=== PATIENT | male | born 1970 | race Caucasian/White ===

== ENCOUNTER 2020-02-06 23:39 | Inpatient (IN) | payer SELFPAY ==
[2020-02-06] MEDS ORDERED: ASPIRIN 81 MG CHEWABLE TABLET ONE ×2 (23:54→23:55)
[2020-02-07 00:04] LABS: Protime INR 1.03
[2020-02-07 00:06] LABS: Basophils % 1.1 % (0-1.3); Hematocrit 40.1 % (39.6-49.0); Lymphocytes % 24.6 % (15.3-44.8); RBC Red Blood Cell Count 4.25 M/uL (4.33-5.43)
[2020-02-07 00:21] LABS: ALT/SGPT 26 U/L (12-78); AST/SGOT 54 U/L (15-37); Albumin 2.1 g/dL (3.4-5.0); Alkaline Phosphatase 75 U/L (45-117); BUN Blood Urea Nitrogen 20 mg/dL (7-18); Bicarbonate 28 mmol/L (21-32); Bilirubin Direct 0.1 mg/dL (0-0.2); Bilirubin Total 0.2 mg/dL (0.2-1.0); Glucose Level 92 mg/dL (74-106); Magnesium 1.9 mg/dL (1.8-2.4); NT PRO-BNP 1516 pg/mL (<125); Potassium 4.3 mmol/L (3.5-5.1); Protein, Total 7.3 g/dL (6.4-8.2); Sodium Level 142 mmol/L (136-145); Troponin (Emerg Dept Use Only) < 0.02 ng/mL (0.0-0.045)
--- NOTE | 2020-02-07 00:37 | EDPHYS ---
Physician Documentation [facility] Name: Jamar Ford Age: 49 yrs Sex: Male : 1970 Arrival Date: 02/06/2020 Time: 23:39 Bed 6 Private MD: ED Physician Brigette Huston HPI: 02/05 23:42 This 49 yrs old Male presents to ER via EMS with complaints of chest pain. ma2 23:42 The patient or guardian reports chest pain that is located primarily in the substernal ma2 area. Onset: gradually, 3 day(s) ago. Associated signs and symptoms: Pertinent negatives: cough, headache, lightheadedness, nausea. Duration: The patient or guardian reports multiple episodes. Severity of pain: At its worst the pain was mild in the emergency department the pain is unchanged. The patient has experienced similar episodes in the past. Historical: - Allergies: 23:44 Ibuprofen; jd3 23:44 Naproxen; jd3 - Home Meds: 23:44 Metoprolol Tartrate Oral [Active]; Klonopin Oral [Active]; jd3 - PMHx: 23:44 heart valve problem; jd3 - PSHx: 23:44 Hernia repair; jd3 - Immunization history:: Adult Immunizations up to date. - Social history:: Patient/guardian denies using alcohol, street drugs, The patient lives with family, Smoking status: Patient reports the use of cigarette tobacco products, denies chronic smoking, but will smoke occasionally. - Family history:: not pertinent. ROS: 23:42 Constitutional: Negative for fever, chills, and weight loss. ma2 23:42 All other systems are negative. Exam: 23:42 Constitutional: This is a well developed, well nourished patient who is awake, alert, ma2 and in no acute distress. Eyes: Pupils equal round and reactive to light, extra-ocular motions intact. Lids and lashes normal. Conjunctiva and sclera are non-icteric and not injected. Cornea within normal limits. Periorbital areas with no swelling, redness, or edema. ENT: Nares patent. No nasal discharge, no septal abnormalities noted. Tympanic membranes are normal and external auditory canals are clear. Oropharynx with no redness, swelling, or masses, exudates, or evidence of obstruction, uvula midline. Mucous membranes moist. Neck: Trachea midline, no thyromegaly or masses palpated, and no cervical lymphadenopathy. Supple, full range of motion without nuchal rigidity, or vertebral point tenderness. No Meningismus. Chest/axilla: Normal chest wall appearance and motion. Nontender with no deformity. No lesions are appreciated. Cardiovascular: Regular rate and rhythm with a normal S1 and S2. No gallops, murmurs, or rubs. Normal PMI, no JVD. No pulse deficits. Respiratory: Lungs have equal breath sounds bilaterally, clear to auscultation and percussion. No rales, rhonchi or wheezes noted. No increased work of breathing, no retractions or nasal flaring. Abdomen/GI: Soft, non-tender, with normal bowel sounds. No distension or tympany. No guarding or rebound. No evidence of tenderness throughout. Skin: Warm, dry with normal turgor. Normal color with no rashes, no lesions, and no evidence of cellulitis. MS/ Extremity: LE edema 2+ pitting, equal bilat. Pulses equal, no cyanosis. Neurovascular intact. Full, normal range of motion. Neuro: Awake and alert, GCS 15, oriented to person, place, time, and situation. Cranial nerves II-XII grossly intact. Motor strength 5/5 in all extremities. Sensory grossly intact. Cerebellar exam normal. Normal gait. Vital Signs: 23:44 BP 156 / 93; Pulse 67; Resp 14 S; Temp 97.9(TE); Pulse Ox 95% on R/A; Weight 97.52 kg jd3 (R); Height 6 ft. 2 in. (187.96 cm) (R); Pain 6/10; 02/06 01:00 BP 138 / 89; Pulse 66; Resp 16; Pulse Ox 96% on R/A; sg 02:07 BP 145 / 95; Pulse 70; Resp 16; Pulse Ox 95% on R/A; sg 02/05 23:44 Body Mass Index 27.60 (97.52 kg, 187.96 cm) jd3 MDM: 02/05 23:40 Patient medically screened. ma2 23:42 Differential diagnosis: abnormal EKG, acute pericarditis, anxiety, coronary artery ma2 disease gastritis, gastroesophageal reflux disease (GERD), pericarditis, pleurisy, pneumonia, stable angina, unstable angina. The patient was given aspirin in the Emergency Department. BECKI Risk Score: TOTAL SCORE = 3. Data reviewed: vital signs, nurses notes. 02/06 00:35 Counseling: I had a detailed discussion with the patient and/or guardian regarding: the [facility] historical points, exam findings, and any diagnostic results supporting the discharge/admit diagnosis, the presence of at least one elevated blood pressure reading (>120/80) during this emergency department visit, the need for further work-up and treatment in the hospital. 02/05 23:41 Order name: Basic Metabolic Panel; Complete Time: 00:32 ma2 02/05 23:41 Order name: CBC with Diff; Complete Time: 00:17 ma2 02/05 23:41 Order name: LFT's; Complete Time: 00:32 ma2 02/05 23:41 Order name: Magnesium; Complete Time: 00:32 ma2 02/05 23:41 Order name: NT PRO-BNP; Complete Time: 00:32 ma2 02/05 23:41 Order name: PT-INR; Complete Time: 00:17 ma2 02/05 23:41 Order name: Troponin (emerg Dept Use Only); Complete Time: 00:32 ma2 02/05 23:41 Order name: XRAY Chest (1 view) [facility] 02/06 01:38 Order name: Echo with Doppler [facility] 02/06 01:38 Order name: Lipid Profile [facility] 02/06 01:38 Order name: Lipid Profile [facility] 02/06 01:38 Order name: Troponin I [facility] 02/06 01:38 Order name: Troponin I [facility] 02/06 01:38 Order name: Troponin I [facility] 02/05 23:41 Order name: EKG; Complete Time: 23:42 ma2 02/05 23:41 Order name: Cardiac monitoring; Complete Time: 23:46 ma2 02/05 23:41 Order name: EKG - Nurse/Tech; Complete Time: 23:45 ma2 02/05 23:41 Order name: IV Saline Lock; Complete Time: 23:54 ma2 02/05 23:41 Order name: Labs collected and sent; Complete Time: 23:54 ma2 02/05 23:41 Order name: O2 Per Protocol; Complete Time: 23:46 ma2 02/05 23:41 Order name: O2 Sat Monitoring; Complete Time: 23:46 ma2 02/06 01:38 Order name: Heart Healthy EDMS 02/06 01:38 Order name: EKG Electrocardiogram EDMS 02/06 01:38 Order name: EKG Electrocardiogram EDNY Administered Medications: 02/05 23:49 Drug: Aspirin Chewable Tablet 324 mg Route: PO; sg 02/06 01:10 Drug: Lasix 20 mg Route: IVP; Site: right antecubital; ea Disposition: 02/07/20 00:35 Hospitalization ordered by Brigette Art for Observation. Preliminary diagnosis is Chest pain, unspecified. - Bed requested for Telemetry/MedSurg (observation). - Status is Observation. sg - Condition is Stable. - Problem is new. - Symptoms are unchanged. Signatures: Dispatcher [employer] EDNY Josh Steele, RN RN sg Layla Noe RN RN tl1 Shayy Moody RN Evangelist Sanchez ea, RN RN jd3 Alzahri, Mohammad, MD MD ma2 Corrections: (The following items were deleted from the chart) 02:07 00:35 Hospitalization Ordered by Brigette Art MD for Observation. Preliminary tl1 diagnosis is Chest pain, unspecified. Bed requested for Telemetry/MedSurg (observation). Status is Observation. Condition is Stable. Problem is new. Symptoms are unchanged. ma2 02:56 02:07 02/07/2020 00:35 Hospitalization Ordered by Brigette Art MD for Observation. sg Preliminary diagnosis is Chest pain, unspecified. Bed requested for Telemetry/MedSurg (observation). Status is Observation. Condition is Stable. Problem is new. Symptoms are unchanged. tl1
--- NOTE | 2020-02-07 00:37 | ER ---
Nurse's Notes [facility] Name: Jamar Ford Age: 49 yrs Sex: Male : 1970 Arrival Date: 02/06/2020 Time: 23:39 Bed 6 Private MD: Diagnosis: Chest pain, unspecified Presentation: 02/05 23:39 Chief complaint: EMS states: "pt called us out for chest pain. he reports that he has a jd3 history of a heart valve problem. he is also reporting swelling in his legs.". Coronavirus screen: Proceed with normal triage. Ebola Screen: Patient negative for fever greater than or equal to 101.5 degrees Fahrenheit, and additional compatible Ebola Virus Disease symptoms. Initial Sepsis Screen: Does the patient meet any 2 criteria? No. Patient's initial sepsis screen is negative. Does the patient have a suspected source of infection? No. Patient's initial sepsis screen is negative. Risk Assessment: Do you want to hurt yourself or someone else? Patient reports no desire to harm self or others. Onset of symptoms was February 06, 2020. 23:39 Method Of Arrival: EMS: [facility] jd3 23:39 Acuity: FERNANDO 3 jd3 Historical: - Allergies: 23:44 Ibuprofen; jd3 23:44 Naproxen; jd3 - Home Meds: 23:44 Metoprolol Tartrate Oral [Active]; Klonopin Oral [Active]; jd3 - PMHx: 23:44 heart valve problem; jd3 - PSHx: 23:44 Hernia repair; jd3 - Immunization history:: Adult Immunizations up to date. - Social history:: Patient/guardian denies using alcohol, street drugs, The patient lives with family, Smoking status: Patient reports the use of cigarette tobacco products, denies chronic smoking, but will smoke occasionally. - Family history:: not pertinent. Screenin:40 Abuse screen: Denies threats or abuse. Denies injuries from another. Nutritional sg screening: No deficits noted. Tuberculosis screening: No symptoms or risk factors identified. Never had TB. Fall Risk None identified. Assessment: 23:40 General: Appears in no apparent distress. well groomed, well developed, well nourished, sg Behavior is calm, cooperative, appropriate for age. Pain: Complains of pain in chest Quality of pain is described as aching, sharp. Neuro: Level of Consciousness is awake, alert, obeys commands, Oriented to person, place, time, situation, Air Crew Supervisor are equal bilaterally Moves all extremities. Gait is steady, Speech is normal, Facial symmetry appears normal. Cardiovascular: Capillary refill is brisk in bilateral fingers Patient's skin is warm and dry. Edema is 2+ to left midcalf, left ankle, right midcalf and right ankle Chest pain is described as mild, quality is pressure, sharp, is located in anterior chest wall. Respiratory: Airway is patent Respiratory effort is even, unlabored, Respiratory pattern is regular, symmetrical, Denies cough, shortness of breath labored breathing. GI: Abdomen is non-distended, Reports tolerance of fluids, tolerance of food. : No signs and/or symptoms were reported regarding the genitourinary system. EENT: No signs and/or symptoms were reported regarding the EENT system. Derm: Skin is pink, warm \\T\\ dry. Musculoskeletal: Circulation, motion, and sensation intact. Range of motion: intact in all extremities. 02/06 02:29 Reassessment: Report called to Sri KUNZ ea Vital Signs: 02/05 23:44 BP 156 / 93; Pulse 67; Resp 14 S; Temp 97.9(TE); Pulse Ox 95% on R/A; Weight 97.52 kg jd3 (R); Height 6 ft. 2 in. (187.96 cm) (R); Pain 6/10; 02/06 01:00 BP 138 / 89; Pulse 66; Resp 16; Pulse Ox 96% on R/A; sg 02:07 BP 145 / 95; Pulse 70; Resp 16; Pulse Ox 95% on R/A; sg 02/05 23:44 Body Mass Index 27.60 (97.52 kg, 187.96 cm) jd3 ED Course: 02/05 11:40 Patient has correct armband on for positive identification. Bed in low position. Call sg light in reach. Side rails up X2. campus monitor on. Pulse ox on. NIBP on. Head of bed elevated. 23:39 Patient arrived in ED. jd3 23:40 Brigette Huston MD is Attending Physician. ma2 23:40 EKG done, by ED staff, reviewed by Brigette Huston MD. sg 23:42 Triage completed. jd3 23:44 Arm band placed on. EKG completed in triage. Results shown to . dario 23:48 Missed attempt(s): 20 gauge in right antecubital area. ea 23:52 Josh Steele, RN is Primary Nurse. sg 23:53 Inserted saline lock: 20 gauge in right antecubital area, using aseptic technique. ea 02/06 00:16 XRAY Chest (1 view) In Process Unspecified. EDMS 00:35 Brigette Art MD is Hospitalizing Provider. ma2 02:29 No provider procedures requiring assistance completed. Patient admitted, IV remains in ea place. Administered Medications: 02/05 23:49 Drug: Aspirin Chewable Tablet 324 mg Route: PO; sg 02/06 01:10 Drug: Lasix 20 mg Route: IVP; Site: right antecubital; ea Outcome: 00:35 Decision to Hospitalize by Provider. ma2 02:29 Admitted to Med/surg accompanied by tech, with chart, Report called to Sri VILLAGOMEZ ea 02:29 Condition: stable 02:29 Instructed on the need for admit. 02:56 Patient left the ED. sg Signatures: Dispatcher [employer] EDMS Josh Steele RN RN sg Antunez, Elena, RN RN ea Davies, Jonathon, RN RN jd3 Alzahri, Mohammad, MD MD ma2 Corrections: (The following items were deleted from the chart) 01:25 02/05 23:40 Cardiovascular: Capillary refill is brisk in bilateral fingers Patient's sg skin is warm and dry. Chest pain is described as mild, quality is pressure, sharp, is located in anterior chest wall sg
[2020-02-07] MEDS ORDERED: FUROSEMIDE 20 MG/ 2ML VIAL ONE (00:52)
[2020-02-07] MEDS ORDERED: ACETAMINOPHEN 500 MG TAB PO PRN (01:33)
[2020-02-07] MEDS ORDERED: ALPRAZOLAM 0.25 MG TABLET PO PRN (01:33)
[2020-02-07] MEDS ORDERED: MORPHINE 4 MG/ML SYR IV PRN (01:33)
[2020-02-07 03:10] VITALS: BMI 26.3
[2020-02-07] MEDS ORDERED: METOPROLOL TAR 50 MG TAB PO SCH (06:00)
[2020-02-07 06:25] LABS: HDL Cholesterol 70 mg/dL (40-60); LDL Cholesterol, Calculated 77 (<130); Troponin I < 0.02 ng/mL (0.0-0.045)
--- NOTE | 2020-02-07 07:24 | P.HP ---
Certification for Inpatient Patient admitted to: Observation With expected LOS: <2 Midnights Patient will require the following post-hospital care: None Practitioner: I am a practitioner with admitting privileges, knowledge of patient current condition, hospital course, and medical plan of care. Services: Services provided to patient in accordance with Admission requirements found in Title 42 Section 412.3 of the Code of Federal Regulations Patient History Date of Service: 02/07/20 Reason for admission: Chest pain rule out acute coronary syndrome History of Present Illness: Patient is a 49-year-old gentleman who came to the hospital with chest discomfort. He started having pain in the sternal region and has also been having some swelling in the lower extremity. He denies any NSAID use. He denies history of heart failure. He has not had any clots in the past. He has an uncle who had blood clots regularly but he states he has never had 1. He does not smoke. He denies any substance abuse. After his chest pain started and would not resolve he called the EMS. Patient was brought into the emergency room for further evaluation. His initial troponins and EKG are unremarkable. Patient does state that he has a valvular disease but he is not really sure exactly what it is. Patient will need to be admitted and further workup for his chest pain. Will get an echocardiogram and will also assess his lower extremity edema with Dopplers. Most likely patient has diastolic heart failure. Patient will be admitted for further evaluation. Allergies ibuprofen Allergy (Verified 02/07/20 03:05) Itching/Hives/Rash naproxen Allergy (Verified 02/07/20 03:05) Itching/Hives/Rash Home Medications: Amlodipine [Norvasc*] 1 tab PO DAILY 02/07/20 Metoprolol Tartrate 1 tab PO BID 02/07/20 Tamsulosin [Flomax*] 1 cap PO DAILY 02/07/20 - Past Medical/Surgical History Has patient received pneumonia vaccine in the past: No Diabetic: No -: heart valve problem -: HTN -: enlarged prostate -: hernia repair - Family History Father Family History: Reviewed- Non-Contributory - Social History Smoking Status: Current every day smoker Alcohol use: Yes CD- Drugs: No Caffeine use: Yes Place of Residence: Home Review of Systems 10-point ROS is otherwise unremarkable Physical Examination - Vital Signs Temperature: 98.5 F Blood Pressure: 124/76 Pulse: 64 Respirations: 18 Pulse Ox (%): 94 - Physical Exam General: Alert, In no apparent distress, Oriented x3 HEENT: Atraumatic, PERRLA, Mucous membr. moist/pink, EOMI, Sclerae nonicteric Neck: Supple, 2+ carotid pulse no bruit, No LAD, Without JVD or thyroid abnormality Respiratory: Clear to auscultation bilaterally, Normal air movement Cardiovascular: Regular rate/rhythm, Normal S1 S2, Systolic murmur Gastrointestinal: Normal bowel sounds, Soft and benign, Non-distended, No tenderness Musculoskeletal: No clubbing, No tenderness, Swelling Integumentary: No rashes Neurological: Normal gait, Normal speech, Normal strength at 5/5 x4 extr, Normal tone, Sensation intact, Cranial nerves 3-12 intact, Normal affect Lymphatics: No axilla or inguinal lymphadenopathy - Studies Laboratory Data (last 24 hrs) 02/06/20 23:46: PT 12.2, INR 1.03 02/06/20 23:46: WBC 8.0, Hgb 13.3 L, Hct 40.1, Plt Count 241 02/06/20 23:46: Sodium 142, Potassium 4.3, BUN 20 H, Creatinine 1.24, Glucose 92, Magnesium 1.9, Total Bilirubin 0.2, AST 54 H, ALT 26, Alkaline Phosphatase 75 Assessment & Plan - Problems (Diagnosis) (1) Chest pain, rule out acute myocardial infarction Current Visit: Yes Status: Acute (2) Swelling of both lower extremities Current Visit: Yes Status: Acute (3) Elevated brain natriuretic peptide (BNP) level Current Visit: Yes Status: Acute (4) Valvular heart disease Current Visit: Yes Status: Acute (5) Hypoalbuminemia Current Visit: Yes Status: Acute (6) Proteinuria Current Visit: Yes Status: Acute - Plan 1. Serial troponins and EKG 2. Cardiology consultation 3. Echocardiogram and stress test if cardiology is agreeable 4. Anti-platelet therapy, anti coagulation, beta-leigh, statin, and O2 as needed 5. IV morphine for pain 6. Nitro p.r.n. 7. Doppler of the lower extremity 8. Monitor labs closely 9. Check urine for proteinuria; patient w/ hypoalbuminemia 10. GI and DVT prophylaxis Discharge Plan: Home Plan to discharge in: 24 Hours - Advance Directives Does patient have a Living Will: No Does patient have a Durable POA for Healthcare: Yes - Code Status/Comfort Care Code Status Assessed: Yes Code Status: Full Code Critical Care: No Time Spent Managing PTS Care (In Minutes): 45
--- NOTE | 2020-02-07 08:24 | RAD REPORT ---
EXAM DESCRIPTION: RAD - Chest Single View - 02/07/2020 12:16 am CLINICAL HISTORY: CHEST PAIN Chest pain. COMPARISON: No comparisons FINDINGS: Portable technique limits examination quality. The lungs are emphysematous but grossly clear. The heart is normal in size. No displaced fractures. IMPRESSION: Mild COPD.
[2020-02-07] MEDS: METOPROLOL TAR 50 MG TAB PO SCH ×2 (08:27→21:32)
[2020-02-07] MEDS: TAMSULOSIN 0.4 MG SR CAP PO SCH (08:27)
[2020-02-07] MEDS: ASPIRIN EC 81 MG TAB PO SCH (08:28)
[2020-02-07] MEDS: AMLODIPINE 10 MG TAB PO SCH (08:28)
[2020-02-07] MEDS: ENOXAPARIN 40 MG/0.4 ML SQ SCH (08:29)
[2020-02-07] MEDS: FUROSEMIDE 20 MG/ 2ML VIAL IV SCH ×2 (08:29→21:32)
[2020-02-07 09:03] LABS: Thyroid Stimulating Hormone 8.9 uIU/mL (0.360-3.740)
--- NOTE | 2020-02-07 10:30 | CON ---
Date of Consultation: 02/07/2020 Reason For Consultation: Shortness of breath and chest pain. History Of Present Illness: Mr. Ford is a 49-year-old white male who has a history of hyperten germán and valvular heart disease of unknown etiology. He just recently moved to this part of the [facility], so we do not really have any medical records, but apparently he was told 1.23 years ago that he ma y need valvular heart surgery. He does not know any details of that. He came in with atypical chest pain, sharp, stabbing, radiating to the left arm and left back without any nausea or vomiting or jessica phoresis, but has been having PND, orthopnea, and pedal edema as well as shortness of breath. He den ied any fevers or chills or cough. Past Medical History: Include hypertension and valvular heart disease. Review of Systems: Negative. Social History: Positive for tobacco. Family History: Unremarkable. Medications: At home include flow mask, Norvasc, and metoprolol tartrate. Allergies: HE IS ALLERGIC TO MOTRIN AND NAPROXEN. Physical Examination: Vital Signs: Blood pressure was 148/91. HEENT: Negative. Neck: Supple with no bruit, lymphadenopathy, JVD, or thyromegaly. Chest: Reveals some rales at both bases. Cardiac: Revealed a regular rhythm and rate with a 3/6 holosystolic murmur at the third right interc ostal space that did not radiate. No gallops or rubs. Abdomen: Benign. Extremities: Revealed 2+ edema to the knees. Impression And Plan: 1.Acute congestive heart failure, most likely secondary to valvular heart disease. 2.Chronic obstructive pulmonary disease on x-ray. 3.Hypertension. 4.Benign prostatic hypertrophy. I think patient needs to continue the metoprolol and the Norvasc. We need to diurese him with IV Las ix, preferably 40 mg twice a day. I think we need to get a 2D echocardiogram today to see what his v alvular status is. Patient's blood pressure is borderline controlled. He is in sinus rhythm, howeve r, we will see how he progresses with diuresis and what the echo shows before making final decisions. JUANCHO/MODL Voice ID: [id number] Report ID: [id number]
[2020-02-07 11:19] LABS: Urine Appearance CLOUDY; Urine Bilirubin NEGATIVE (NEG); Urine Blood 2+ (NEG); Urine Color YELLOW; Urine Glucose NEGATIVE (NEG); Urine Protein 2+ (NEG); Urine Specific Gravity <=1.005 (1.005-1.030); Urine Urobilinogen 0.2 mg/dL (0.2-1.0); Urine pH 6.5 (5.0-7.0)
[2020-02-07 11:48] LABS: Urine Bacteria <20 /HPF (NONE SEEN); Urine Culture Reflex Order NOT NEEDED
--- NOTE | 2020-02-07 16:28 | P.PN ---
Subjective Date of Service: 02/07/20 Primary Care Provider: Out of town Chief Complaint: Chest pain rule out acute coronary syndrome Subjective: Improving Physical Examination - Vital Signs Temperature: 97.8 F Blood Pressure: 136/90 Pulse: 61 Respirations: 18 Pulse Ox (%): 94 - Physical Exam General: Alert, Cooperative HEENT: Atraumatic Neck: Supple Respiratory: Crackles/rales (The bases) Cardiovascular: Normal pulses, Regular rate/rhythm Gastrointestinal: Normal bowel sounds, Soft and benign, Non-distended Integumentary: Tenderness/swelling (Edema to the lower extremities improved) Neurological: Normal speech, Normal strength at 5/5 x4 extr, Normal tone, Normal affect - Studies Laboratory Data (last 24 hrs) 02/06/20 23:46: PT 12.2, INR 1.03 02/06/20 23:46: WBC 8.0, Hgb 13.3 L, Hct 40.1, Plt Count 241 02/06/20 23:46: Sodium 142, Potassium 4.3, BUN 20 H, Creatinine 1.24, Glucose 92, Magnesium 1.9, Total Bilirubin 0.2, AST 54 H, ALT 26, Alkaline Phosphatase 75 Medications List Reviewed: Yes Assessment & Plan Discharge Plan: Home Plan to discharge in: 24 Hours Physician Review Additional Text: Impression: Chest pain, shortness of breath secondary to acute on chronic congestive heart failure. Suspect related to valvular disease Hypertension BPH COPD Plan: Case discussed with cardiology. Will continue with diuresis. Continue Lasix. Will obtain echocardiogram. Will wean off oxygen. Will recheck chest x-ray tomorrow. Continue hypertensive medication and medication for BPH. Will provide medication for COPD as well. Anticipate improvement over the next 24 hr. Will monitor closely to further address. Time Spent Managing Pts Care (In Minutes): 55
--- NOTE | 2020-02-07 18:31 | EKG ---
Test Date: 2020-02-06 Test Time: 23:37:29 Pedodontist: SWG MEASUREMENT RESULTS: Intervals: Rate: 67 ME: 196 QRSD: 106 QT: 450 QTc: 475 [place]: P: 42 ME: 196 QRS: -50 T: 39 INTERPRETIVE STATEMENTS: Normal sinus rhythm Left axis deviation Incomplete right bundle branch block Septal infarct, age undetermined Abnormal ECG No previous ECG available for comparison Electronically Signed On 02-07-20 18:31:09 CDT by Joesph Copeland
[2020-02-08] MEDS: ASPIRIN EC 81 MG TAB PO SCH (07:46)
[2020-02-08] MEDS: FUROSEMIDE 20 MG/ 2ML VIAL IV SCH (07:46)
[2020-02-08] MEDS: ENOXAPARIN 40 MG/0.4 ML SQ SCH (07:46)
[2020-02-08] MEDS: AMLODIPINE 10 MG TAB PO SCH (07:46)
[2020-02-08] MEDS: TAMSULOSIN 0.4 MG SR CAP PO SCH (07:47)
[2020-02-08] MEDS: METOPROLOL TAR 50 MG TAB PO SCH (07:47)
[2020-02-08 07:48] VITALS: BP 154/91
[2020-02-08 07:53] VITALS: O2SAT 95
--- NOTE | 2020-02-08 08:00 | ECHO ---
HEIGHT: 6 ft 2 in WEIGHT: 205 lb 1.6 oz DATE OF STUDY: 02/07/[address]: Brigette Art MD 2-DIMENSIONAL: YES M.MODE: YES DOPPLER: YES COLOR FLOW: YES TDS: YES PORTABLE: NO DEFINITY: NO BUBBLE STUDY: NO DIAGNOSIS: CHEST PAIN RULE OUT ACS CARDIAC HISTORY: CATHERIZATION: NO SURGERY: NO PROSTHETIC VALVE: NO PACEMAKER: NO MEASUREMENTS (cm) DIASTOLIC (NORMALS) SYSTOLIC (NORMALS) IVSd 1.1 (0.6-1.2) LA Diam 4.2 (1.9-4.0) LVEF 67% LVIDd 4.2 (3.5-5.7) LVIDs 2.7 (2.0-3.5) %FS 37% LVPWd 1.2 (0.6-1.2) Ao Diam 3.0 (2.0-3.7) 2 DIMENSIONAL ASSESSMENT: RIGHT ATRIUM: NORMAL LEFT ATRIUM: DILATED RIGHT VENTRICLE: NORMAL LEFT VENTRICLE: NORMAL TRICUSPID VALVE: NORMAL MITRAL VALVE: NORMAL PULMONIC VALVE: NORMAL AORTIC VALVE: STENOTIC PERICARDIAL EFFUSION: NONE AORTIC ROOT: NORMAL LEFT VENTRICULAR WALL MOTION: NORMAL DOPPLER/COLOR FLOW: MILD AORTIC STENOSIS. AORTIC VALVE AREA 1.9 CENTIMETERS SQUARED. MILD TRICUSPID REGURGITATION. NORMAL RIGHT VENTRICULAR SYSTOLIC PRESSURE. COMMENTS: MILD AORTIC STENOSIS. AORTIC VALVE AREA 1.9 CENTIMETERS SQUARED. NORMAL LEFT VENTRICULAR SIZE AND FUNCTION. NO EFFUSION. MILD TRICUSPID REGURGITATION. NORMAL RIGHT VENTRICULAR SYSTOLIC PRESSURE. TECHNOLOGIST: Osmani HAHN
--- NOTE | 2020-02-08 08:02 | RAD REPORT ---
EXAM DESCRIPTION: US - Extrem Venous W Compress Jensen - 02/08/2020 7:16 am CLINICAL HISTORY: DVT Bilateral leg edema and swelling. COMPARISON: No comparisons TECHNIQUE: Real-time sonographic interrogation of the left and right lower extremity deep venous sys tems was performed. FINDINGS: Normal compressibility, flow augmentation, phasic flow and spontaneous flow is identified in both the left and right lower extremity deep venous systems. IMPRESSION: No sonographic evidence of left or right lower extremity deep venous thrombosis.
--- NOTE | 2020-02-08 09:31 | P.DS ---
Admission Date: 02/07/20 Discharge Date: 02/08/20 Primary Care Provider: Out of town Disposition: ROUTINE DISCHARGE Discharge Condition: GOOD Reason for Admission: Chest pain rule out acute coronary syndrome Consultations: Cardiology-Dr. Copeland Procedures: Venous doppler: FINDINGS: Normal compressibility, flow augmentation, phasic flow and sp ontaneous flow is identified in both the left and right lower extremity deep venous systems. IMPRESSION: No sonographic evidence of left or right lower extremity deep venous thrombosis ECHO: Ejection fraction 67% LEFT VENTRICULAR WALL MOTION: NORMAL DOPPLER/COLOR FLOW: MILD AORTIC STENOSIS. AORTIC VALVE AREA 1.9 CENTIMETERS SQUARED. MILD TRICUSPID REGURGITATION. NORMAL RIGHT VENTRICULAR SYSTOLIC PRESSURE. COMMENTS: MILD AORTIC STENOSIS. AORTIC VALVE AREA 1.9 CENTIMETERS SQUARED. NORMAL LEFT VENTRICULAR SIZE AND FUNCTION. NO EFFUSION. MILD TRICUSPID REGURGITATION. NORMAL RIGHT VENTRICULAR SYSTOLIC PRESSURE. Medical Problem List: Chest pain, shortness of breath secondary to acute on chronic diastolic congestive heart failure with mild aortic stenosis Hypertension BPH COPD with tobacco abuse Elevated globulin level Subclinical hypothyroidism Brief History of Present Illness: 49-year-old male presented to the emergency room with chest pain. Patient with history of valvular disease. Patient admitted for further evaluation and treatment. Hospital Course: Patient presented with chest pain and shortness of breath. Patient also had edema to the lower extremities. Patient was admitted for further evaluation. Patient seen by Cardiology. Cardiology suspected valvular disease. Patient was given IV diuretic therapy with fluid restriction. His condition improved. Venous Doppler negative for DVT. Echocardiogram shows normal ejection fraction but mild aortic stenosis noted. Chest pain/shortness of breast suspected related to acute on chronic diastolic CHF with mild aortic stenosis. At discharge he is without significant chest pain or shortness of breath. No need for further cardiac intervention at this time. At discharge patient will continue with 1500 cc per day fluid restriction and low-salt diet. Recommend to monitor his weight daily. If his weight increases by more than 5 lb he is to contact his PCP or cardiology for further instruction. Education on CHF and aortic stenosis will be provided. At discharge patient will continue with Lasix 40 mg daily. Recommend follow up with cardiology in 1-2 weeks to monitor his progress. Further adjustment in medication can be done by cardiology or his PCP. Patient with hypertension. This has remained stable. At discharge he will continue with metoprolol 50 mg 1 pill twice daily and Norvasc 10 mg daily. Recommend to maintain blood pressure less 150/80. Further adjustment can be done by his PCP. Patient with BPH. At discharge he will continue with Flomax 0.4 mg daily. Recommend follow up with urology as directed. Patient with tobacco abuse. Suspect underlying COPD. Patient would benefit with treatment. At discharge will recommend Symbicort 2 puffs twice daily and albuterol 2 puffs 3 times a day as needed for shortness of breath. Recommend follow up with pulmonology as an outpatient to further address and monitor. Patient had elevated globulin level. Serum protein electrophoresis has been sent. This can be followed up with his PCP. Patient with subclinical hypothyroidism. Tsh slightly elevated with normal T4. Recommend to recheck tsh and free T4 in 2-4 weeks to further evaluate. Patient may require medication in the future with Endocrine evaluation. Vital Signs/Physical Exam: Temp Pulse Resp BP Pulse Ox 98.4 F 60 16 154/91 H 95 02/08/20 04:00 02/08/20 07:47 02/08/20 08:18 02/08/20 07:47 02/08/20 08:18 General: Alert, In no apparent distress, Oriented x3, Cooperative HEENT: Atraumatic Neck: Supple Respiratory: Clear to auscultation bilaterally, Normal air movement Cardiovascular: Systolic murmur (Aortic) Gastrointestinal: No tenderness, No masses, No rebound, No guarding Musculoskeletal: No tenderness, No warmth Integumentary: Tenderness/swelling (Edema to the lower extremity significantly improved) Neurological: Normal speech, Normal strength at 5/5 x4 extr, Normal tone, Normal affect Laboratory Data at Discharge: WBC 8.0 K/uL (4.3-10.9) 02/06/20 23:46 Hgb 13.3 g/dL (13.6-17.9) L 02/06/20 23:46 Hct 40.1 % (39.6-49.0) 02/06/20 23:46 Plt Count 241 K/uL (152-406) 02/06/20 23:46 PT 12.2 SECONDS (9.5-12.5) 02/06/20 23:46 INR 1.03 02/06/20 23:46 Sodium 142 mmol/L (136-145) 02/06/20 23:46 Potassium 4.3 mmol/L (3.5-5.1) 02/06/20 23:46 BUN 20 mg/dL (7-18) H 02/06/20 23:46 Creatinine 1.24 mg/dL (0.55-1.3) 02/06/20 23:46 Glucose 92 mg/dL (74-106) 02/06/20 23:46 Magnesium 1.9 mg/dL (1.8-2.4) 02/06/20 23:46 Total Bilirubin 0.2 mg/dL (0.2-1.0) 02/06/20 23:46 AST 54 U/L (15-37) H 02/06/20 23:46 ALT 26 U/L (12-78) 02/06/20 23:46 Alkaline Phosphatase 75 U/L (45-117) 02/06/20 23:46 Troponin I < 0.02 ng/mL (0.0-0.045) 02/07/20 11:56 Triglycerides 70 mg/dL (<150) 02/07/20 05:31 Cholesterol 161 mg/dL (<200) 02/07/20 05:31 HDL Cholesterol 70 mg/dL (40-60) H 02/07/20 05:31 Cholesterol/HDL Ratio 2.30 02/07/20 05:31 Home Medications: Albuterol Inhaler [Ventolin Inhaler*] 2 puff IH Q6H PRN #1 hfa.aer.ad 02/08/20 Amlodipine [Norvasc*] 1 tab PO DAILY #30 tab 02/08/20 Budesonide/Formoterol Fumarate [Symbicort 160-4.5 Mcg Inhaler] 2 puff IH BID #1 hfa.aer.ad 02/08/20 Furosemide [Lasix] 40 mg PO DAILY #30 tab 02/08/20 Metoprolol Tartrate 1 tab PO BID #60 02/08/20 Nicotine [Nicoderm] 1 patch TD DAILY #30 patch.td24 02/08/20 Tamsulosin [Flomax*] 1 cap PO DAILY #30 cap 02/08/20 New Medications: Tamsulosin [Flomax*] 1 cap PO DAILY #30 cap Furosemide [Lasix] 40 mg PO DAILY #30 tab Metoprolol Tartrate 1 tab PO BID #60 Nicotine [Nicoderm] 1 patch TD DAILY #30 patch.td24 Amlodipine [Norvasc*] 1 tab PO DAILY #30 tab Budesonide/Formoterol Fumarate [Symbicort 160-4.5 Mcg Inhaler] 2 puff IH BID #1 hfa.aer.ad Albuterol Inhaler [Ventolin Inhaler*] 2 puff IH Q6H PRN #1 hfa.aer.ad PRN Reason: Shortness Of Breath Patient Discharge Instructions: 1. Recommend follow up with PCPs to establish care and follow up this hospitalization. 2. Patient presented with chest pain and shortness of breath. Patient also had edema to the lower extremities. Patient was admitted for further evaluation. Patient seen by Cardiology. Cardiology suspected valvular disease. Patient was given IV diuretic therapy with fluid restriction. His condition improved. Venous Doppler negative for DVT. Echocardiogram shows normal ejection fraction but mild aortic stenosis noted. Chest pain/shortness of breast suspected related to acute on chronic diastolic CHF with mild aortic stenosis. At discharge he is without significant chest pain or shortness of breath. No need for further cardiac intervention at this time. At discharge patient will continue with 1500 cc per day fluid restriction and low-salt diet. Recommend to monitor his weight daily. If his weight increases by more than 5 lb he is to contact his PCP or cardiology for further instruction. Education on CHF and aortic stenosis will be provided. At discharge patient will continue with Lasix 40 mg daily. Recommend follow up with cardiology in 1-2 weeks to monitor his progress. Further adjustment in medication can be done by cardiology or his PCP. 3. Patient with hypertension. This has remained stable. At discharge he will continue with metoprolol 50 mg 1 pill twice daily and Norvasc 10 mg daily. Recommend to maintain blood pressure less 150/80. Further adjustment can be done by his PCP. 4. Patient with BPH. At discharge he will continue with Flomax 0.4 mg daily. Recommend follow up with urology as directed. 5. Patient with tobacco abuse. Suspect underlying COPD. Patient would benefit with treatment. At discharge will recommend Symbicort 2 puffs twice daily and albuterol 2 puffs 3 times a day as needed for shortness of breath. Recommend follow up with pulmonology as an outpatient to further address and monitor. 6. Patient had elevated globulin level. Serum protein electrophoresis has been sent. This can be followed up with his PCP. 7. Patient with subclinical hypothyroidism. Tsh slightly elevated with normal T4. Recommend to recheck tsh and free T4 in 2-4 weeks to further evaluate. Patient may require medication in the future with Endocrine evaluation. Diet: AHA Activity: Ad citlaly Time spent managing pt's care (in minutes): 55
[2020-02-08 09:35] VITALS: TEMP 98
--- NOTE | 2020-02-08 17:32 | EKG ---
Test Date: 2020-02-08 Test Time: 09:09:27 Language Interpreter: PUSHPA MEASUREMENT RESULTS: Intervals: Rate: 53 NM: 218 QRSD: 114 QT: 472 QTc: 442 [place]: P: 43 NM: 218 QRS: -46 T: -13 INTERPRETIVE STATEMENTS: Sinus bradycardia with 1st degree AV block Left anterior fascicular block Septal infarct, age undetermined Abnormal ECG Compared to ECG 02/06/2020 23:37:29 First degree AV block now present Left anterior fascicular block now present Sinus rhythm no longer present Left-axis deviation no longer present Incomplete right bundle-branch block no longer present Myocardial infarct finding still present Electronically Signed On 02-08-20 17:31:48 CDT by Joesph Copealnd
== END 2020-02-08 11:55 | disposition home or self-care (01) | DRG 293 ==
LOC: ER 23:39 → OBSVTOIN 02-07 02:23 → ERHOLD 02-07 02:23 → 2ND 02-07 02:29
PROVIDERS: ADMIT Hospitalist; ATTEND Family Medicine
DX: I11.0 Hypertensive heart disease with heart failure (principal); I50.33 Acute on chronic diastolic (congestive) heart failure; E02 Subclinical iodine-deficiency hypothyroidism; I35.0 Nonrheumatic aortic (valve) stenosis; F17.210 Nicotine dependence, cigarettes, uncomplicated; E88.09 Other disorders of plasma-protein metabolism, not elsewhere classified; J44.9 Chronic obstructive pulmonary disease, unspecified; R80.9 Proteinuria, unspecified; N40.0 Benign prostatic hyperplasia without lower urinary tract symptoms; Z88.8 Allergy status to other drugs, medicaments and biological substances; Z79.899 Other long term (current) drug therapy
CPT/HCPCS: 36415; 71045; 80048; 80061; 80076; 81001; 83735; 83880; 84165; 84439; 84443; 84484; 85025; 85610; 93005; 93306; 93970; 96374; 99285; J1650; J1940

== ENCOUNTER 2020-05-12 02:14 | Emergency (ER) | payer SELFPAY ==
--- OUTSIDE RECORDS SUMMARY | 2020-05-12 02:18 | XMS REPORT | Continuity of Care Document ---
:1970 Author Organization [facility] t Address [address] [place] [address] Care Team Providers Name Role Phone Alexis LAZO, W Attending Clinician Payers Payer Name Policy Type Policy Number Effective Date Expiration Date S ource Problems This patient has no known problems. Allergies, Adverse Reactions, Alerts Allergy Allergy Status Severity Reaction(s) Onset Inactive Treating Comm ents Source Name Type Date Date Clinician naproxen DA Active 2018-10 [facility] 1-14 [facility] 00:00: [address] DA Active [place] 2017-10 [facility] [place] 2[place] 00:00: [address] [place] 2017-10 [facility] [place] 0-[place] 00:00: [address] Medications This patient has no known medications. Procedures This patient has no known procedures. Encounters Start End Encounter Admission Attending Care Care Encounter Source Date/Time Date/Time Type Type Clinicians Facility Department ID 2020-05-09 2020-05-09 Emergency Juan Miguel Espinoza TRAUMA [id number] 14:42:46 17:30:00 [facility] [id number] Results Test Description Test Time Test Comments Results Result Comments Source PROTHROMBIN TIME 2019-09-13 23:28:00 Test Item Value Reference Range Interpretation Comme nts PROTHROMBIN TIME PATIENT (test 10.4 SECONDS 9.3-12.4 N Reference Range revised code = PTP) from 9.3-12.4 a s of 09/21/18. INTERNATIONAL NORMAL RATIO 1.03 R ecommended INR range (warfarin (test code = INR) therapy): 2.0 - 3.0INR (International Normalized Ratio) should b eused when interpreting or al anticoaglulant therapy. For atrial fibrilla tion and treatment orpre vention of deep vein thrombosis . Patients with Palmaz-Amado s tent *: 2.0 - 3.0 Pat ients with mechanical hear t valve *: 2.5 - 3.5 Pat ients with flex-stent *: 3.0 - 4.0(*) = gas leak inspector's suggested range Is patient on anticoagulants? Unknown- XR CHEST 1 [id number] 23:09:00 Patient Name: RICKY GARBER Unit No: [id number] EXAMS: CPT CODE: [id number] XR CHEST 1 V [id number] Reason: CHEST PAIN PROCEDURE INFORMATION: Exam: XR Chest, 1 View Exam date and time: 09/13/2019 10:50 PM Age: 49 years old Clinical history: Angina; Additional info: Chest pain TECHNIQUE: Imagingprotocol: XR of the chest Views: 1 view. COMPARISON: CR XR CHEST 1 V 08/31/2019 11:21 AM FINDINGS: Lungs: Unremarkable. No consolidation. Bronchial cuffing in the lower lobe shows improvement compared with previous. Pleural space: Unremarkable. No pleural effusion. No pneumothorax. Heart/Mediastinum: Unremarkable. No cardiomegaly. Bones/joints: Unremarkable. IMPRESSION: No acute findings. at 2309 Reported and signed by: Gavino ALVARENGA CC: Kaylee Madden MD Technologist: Heron Colón RT CT Trscrpt Dt/ (2308)LYLE.VR Orig Print D/T: S: 09/13/2019 (2308) [place] NAME: RICKY GARBER [address] [place] [address] PHYS: Kaylee Pierce MD [address] : 1970 AGE: 49 SEX: M [place], [place] LOC: MARIANGEL PHONE #: [phone] EXAMDATE: 09/13/2019 STATUS: REG ER FAX #: RAD NO: DC Dt: PAGE 1 Signed ReportCOMPREHENSIVE METABOLIC [id number] 23:07:00 Test Item Value Reference Range Interpretation Comments SODIUM (test code = 137 MMOL/L 133-145 N NA) POTASSIUM (test code = 4.2 MMOL/L 3.6-5.2 N K) CHLORIDE (test code = 107 MMOL/L 100-108 N CL) CARBON DIOXIDE (test 24 MMOL/L 22-32 N code = CO2) GLUCOSE (test code = 145 MG/DL 65-99 H Results of this assay GLU) method may be f alsely depressed orele vated if patient is t aking sulfasalazine. BLOOD UREA NITROGEN 38 MG/DL 6-20 H (test code = BUN) GLOMERULAR FILTRATION 49 56-130 L Report ing units: RATE (test code = GFR) mL/mi n/1.73m\S\2 (Modified MDRD Formula) CREATININE (test code 1.52 MG/DL 0.60-1.00 H = CREAT) TOTAL PROTEIN (test 6.3 G/DL 6.4-8.2 L code = PROT) ALBUMIN (test code = 1.8 G/DL 3.4-5.0 L ALB) GLOBULIN (test code = 4.5 G/DL 1.5-3.8 H GLOB) ALBUMIN/GLOBULIN RATIO 0.4 1.1-2.2 L (test code = A/G) CALCIUM (test code = 7.5 MG/DL 8.7-10.5 L CA) BILIRUBIN TOTAL (test 0.2 MG/DL 0.0-1.0 N code = BILT) SGOT/AST (test code = 52 Units/L 15-37 H Result s of this assay AST) method may be f alsely depressed orele vated if patient is t aking sulfasalazine. SGPT/ALT (test code = 29 Units/L 30-65 L Result s of this assay ALT) method may be f alsely depressed orele vated if patient is t aking sulfasalazine. ALKALINE PHOSPHATASE 64 Units/L 50-136 N TOTAL (test code = ALKP) [id number] 23:07:00 Test Item Value Reference Range Interpretation Comments MAGNESIUM (test code = MAG) 1.8 MG/DL 1.8-2.4 N THYROID STIMULATING [id number] 23:07:00 Test Item Value Reference Range Interpretation Comments THYROID STIMULATING 5.75 0.42-5.47 H Micro-In ternational HORMONE (test code = TSH) Un its/L NT PRO-BRAIN NATRIURETIC [id number] 23:07:00 Test Item Value Reference Range Interpretation Comments NT PRO-BRAIN 502 PG/ML 0-125 H Results of this assay NATRIURETIC PEPTI (test meth od may be falsely code = PROBNP) depressed ore levated if patient is t aking high doses of B iotin. CBC W/AUTO [id number] 23:03:00 Test Item Value Reference Range Interpretation Comments WHITE BLOOD CELL (test 8.24 x10 3/uL 4.80-10.80 N code = WBC) RED BLOOD CELL (test 4.32 x10 6/uL 4.7-6.1 L code = RBC) HEMOGLOBIN (test code = 13.2 G/DL 14.0-17.0 L VERI FIED BY HGB) REPEATED ANALYS IS BY Christie Harrison09/13/19 NEW VISIT HEMATOCRIT (test code = 39.8 % 42-52 L HCT) MEAN CELL VOLUME (test 92.1 FL 80-94 N code = MCV) MEAN CELL HGB (test 30.6 PG 27-31 N code = MCH) MEAN CELL HGB 33.2 G/DL 33-37 N CONCENTRATION (test code = MCHC) RED CELL DISTRIBUTION 13.8 % 11.5-14.5 N WIDTH (test code = RDW) PLATELET COUNT (test 169 x10 3/uL 150-450 N code = PLT) MEAN PLATELET VOLUME 10.1 FL 7.4-10.4 N (test code = MPV) NEUTROPHIL % (test code 49.3 % 42-86 N = NT%) LYMPHOCYTE % (test code 36.4 % 24-44 N = LY%) MONOCYTE % (test code = 7.6 % 0.0-4.0 H MO%) EOSINOPHIL % (test code 6.3 % 0.0-2.7 H = EO%) BASOPHIL % (test code = 0.4 % 0.0-0.5 N BA%) NEUTROPHIL # (test code 4.06 x10 3/uL 1.8-7.7 N = NT#) LYMPHOCYTE # (test code 3.00 x10 3/uL 1.0-4.8 N = LY#) MONOCYTE # (test code = 0.63 x10 3/uL 0.0-0.8 N MO#) EOSINOPHIL # (test code 0.52 x10 3/uL 0.0-0.5 H = EO#) BASOPHIL # (test code = 0.03 x10 3/uL 0.0-0.2 N BA#) COMPREHENSIVE METABOLIC [id number] 23:03:00 Test Item Value Reference Range Interpretation Comments SODIUM (test code = 137 MMOL/L 133-145 N NA) POTASSIUM (test code = 4.2 MMOL/L 3.6-5.2 N K) CHLORIDE (test code = 107 MMOL/L 100-108 N CL) CARBON DIOXIDE (test 24 MMOL/L 22-32 N code = CO2) GLUCOSE (test code = 145 MG/DL 65-99 H Results of this assay GLU) method may be f alsely depressed orele vated if patient is t aking sulfasalazine. BLOOD UREA NITROGEN 38 MG/DL 6-20 H (test code = BUN) GLOMERULAR FILTRATION 49 56-130 L Report ing units: RATE (test code = GFR) mL/mi n/1.73m\S\2 (Modified MDRD Formula) CREATININE (test code 1.52 MG/DL 0.60-1.00 H = CREAT) TOTAL PROTEIN (test G/DL 6.4-8.2 code = PROT) ALBUMIN (test code = G/DL 3.4-5.0 ALB) GLOBULIN (test code = G/DL 1.5-3.8 GLOB) ALBUMIN/GLOBULIN RATIO 1.1-2.2 (test code = A/G) CALCIUM (test code = 7.5 MG/DL 8.7-10.5 L CA) BILIRUBIN TOTAL (test MG/DL 0.0-1.0 code = BILT) SGOT/AST (test code = Units/L 15-37 AST) SGPT/ALT (test code = Units/L 30-65 ALT) ALKALINE PHOSPHATASE Units/L 50-136 TOTAL (test code = ALKP) [id number] 23:03:00 Test Item Value Reference Range Interpretation Comments MAGNESIUM (test code = MAG) MG/DL 1.8-2.4 THYROID STIMULATING [id number] 23:03:00 Test Item Value Reference Range Interpretation Comments THYROID STIMULATING HORMONE (test code 0.42-5.47 = TSH) NT PRO-BRAIN NATRIURETIC [id number] 23:03:00 Test Item Value Reference Range Interpretation Comments NT PRO-BRAIN NATRIURETIC PEPTI (test PG/ML 0-125 code = PROBNP) TROPONIN I [id number] 22:53:00 Test Item Value Reference Range Interpretation Comments TROPONIN I RAPID 0.02 NG/ML 0.00-0.08 N Performed b y certified (test code = operator maintainer at [facility]) EC - The use o f serial sampling and te sting protocol is a recommended pra ctice.- An elevated tro ponin level alone is often not sufficient for diagnosis of my ocardial infarction. CBC W/AUTO [id number] 15:35:00 Test Item Value Reference Range Interpretation Comments WHITE BLOOD CELL 10.90 x10 3/uL 4.80-10.80 H (test code = WBC) RED BLOOD CELL (test 5.35 x10 6/uL 4.7-6.1 N code = RBC) HEMOGLOBIN (test 16.4 G/DL 14.0-17.0 N code = HGB) HEMATOCRIT (test 48.4 % 42-52 N code = HCT) MEAN CELL VOLUME 90.5 FL 80-94 N (test code = MCV) MEAN CELL HGB (test 30.7 PG 27-31 N code = MCH) MEAN CELL HGB 33.9 G/DL 33-37 N CONCENTRATION (test code = MCHC) RED CELL 14.2 % 11.5-14.5 N DISTRIBUTION WIDTH (test code = RDW) PLATELET COUNT (test 223 x10 3/uL 150-450 N code = PLT) MEAN PLATELET VOLUME 10.3 FL 7.4-10.4 N (test code = MPV) NEUTROPHIL % (test 63.5 % 42-86 N code = NT%) LYMPHOCYTE % (test 24.7 % 24-44 N code = LY%) MONOCYTE % (test 7.7 % 0.0-4.0 H code = MO%) EOSINOPHIL % (test 3.7 % 0.0-2.7 H code = EO%) BASOPHIL % (test 0.4 % 0.0-0.5 N code = BA%) NEUTROPHIL # (test 6.93 x10 3/uL 1.8-7.7 N code = NT#) LYMPHOCYTE # (test 2.69 x10 3/uL 1.0-4.8 N code = LY#) MONOCYTE # (test 0.84 x10 3/uL 0.0-0.8 H code = MO#) EOSINOPHIL # (test 0.40 x10 3/uL 0.0-0.5 N code = EO#) BASOPHIL # (test 0.04 x10 3/uL 0.0-0.2 N code = BA#) MANUAL DIFF REQUIRED AUTODIFF TECH REVIEW Auto (test code = MDIFF) VERIFIED Differen tial verified by carlos manuel h review of smear . COMPREHENSIVE METABOLIC [id number] 15:34:00 Test Item Value Reference Range Interpretation Comments SODIUM (test code = 138 MMOL/L 133-145 N NA) POTASSIUM (test code = 4.6 MMOL/L 3.6-5.2 N K) CHLORIDE (test code = 105 MMOL/L 100-108 N CL) CARBON DIOXIDE (test 28 MMOL/L 22-32 N code = CO2) GLUCOSE (test code = 92 MG/DL 65-99 N Results of this assay GLU) method may be f alsely depressed orele vated if patient is t aking sulfasalazine. BLOOD UREA NITROGEN 25 MG/DL 6-20 H (test code = BUN) GLOMERULAR FILTRATION 55 56-130 L Report ing units: RATE (test code = GFR) mL/mi n/1.73m\S\2 (Modified MDRD Formula) CREATININE (test code 1.37 MG/DL 0.60-1.00 H = CREAT) TOTAL PROTEIN (test 7.1 G/DL 6.4-8.2 N code = PROT) ALBUMIN (test code = 1.9 G/DL 3.4-5.0 L ALB) GLOBULIN (test code = 5.2 G/DL 1.5-3.8 H GLOB) ALBUMIN/GLOBULIN RATIO 0.4 1.1-2.2 L (test code = A/G) CALCIUM (test code = 10.4 MG/DL 8.7-10.5 N CA) BILIRUBIN TOTAL (test 0.2 MG/DL 0.0-1.0 N code = BILT) SGOT/AST (test code = 59 Units/L 15-37 H Result s of this assay AST) method may be f alsely depressed orele vated if patient is t aking sulfasalazine. SGPT/ALT (test code = 28 Units/L 30-65 L Result s of this assay ALT) method may be f alsely depressed orele vated if patient is t aking sulfasalazine. ALKALINE PHOSPHATASE 84 Units/L 50-136 N TOTAL (test code = ALKP) [id number] 15:34:00 Test Item Value Reference Range Interpretation Comments LIPASE (test code = LIP) 95 Units/L 73-393 N UA RFLX [id number] 15:23:00 Test Item Value Reference Range Interpretation Comments UA COLOR (test code = COLU) Yellow YELLOW UA APPEARANCE (test code = CLEAR CLEAR APPU) UA GLUCOSE DIPSTICK (test NEGATIVE mg/dL NEGATIVE code = DGLUU) UA BILIRUBIN DIPSTICK (test NEGATIVE NEGATIVE code = BILU) UA KETONE DIPSTICK (test code NEGATIVE mg/dL NEGATIVE = KETU) UA SPECIFIC GRAVITY (test 1.015 1.001-1.035 N code = SGU) UA BLOOD DIPSTICK (test code 4+ NEGATIVE A = JAGDISH) UA PH DIPSTICK (test code = 5.0 5.5-7.0 L OVIDIO) UA PROTEIN DIPSTICK (test 500 mg/dL NEGATIVE A code = PROU) UA UROBILINOGEN DIPSTICK NORMAL mg/dL NORMAL (test code = URO) UA NITRITE DIPSTICK (test NEGATIVE NEGATIVE code = SHEA) UA LEUKOCYTE ESTERASE NEGATIVE NEGATIVE DIPSTICK (test code = LEUU) UA COMMENT (test code = COMU) VOLUME 10-12 ML URINE SPECIMEN DESCRIPTION Clean Catch (test code = UASPEC) UA [id number] 15:23:00 Test Item Value Reference Range Interpretation Comments UA WBC (test code = WBCU) < 10 #/hpf <10 UA RBC (test code = RBCU) 10-15 #/hpf NONE SEEN A UA BACTERIA (test code = BACU) 3+ #/hpf NONE SEEN UA SQUAMOUS CELLS (test code = 0 - 20 #/lpf <100 SQU) UA HYALINE CAST (test code = 3-5 #/lpf HYALU) UA RFLX [id number] 15:16:00 Test Item Value Reference Range Interpretation Comments UA COLOR (test code = COLU) Yellow YELLOW UA APPEARANCE (test code = CLEAR CLEAR APPU) UA GLUCOSE DIPSTICK (test NEGATIVE mg/dL NEGATIVE code = DGLUU) UA BILIRUBIN DIPSTICK (test NEGATIVE NEGATIVE code = BILU) UA KETONE DIPSTICK (test code NEGATIVE mg/dL NEGATIVE = KETU) UA SPECIFIC GRAVITY (test 1.015 1.001-1.035 N code = SGU) UA BLOOD DIPSTICK (test code 4+ NEGATIVE A = JAGDISH) UA PH DIPSTICK (test code = 5.0 5.5-7.0 L OVIDIO) UA PROTEIN DIPSTICK (test 500 mg/dL NEGATIVE A code = PROU) UA UROBILINOGEN DIPSTICK NORMAL mg/dL NORMAL (test code = URO) UA NITRITE DIPSTICK (test NEGATIVE NEGATIVE code = SHEA) UA LEUKOCYTE ESTERASE NEGATIVE NEGATIVE DIPSTICK (test code = LEUU) UA COMMENT (test code = COMU) VOLUME 10-12 ML URINE SPECIMEN DESCRIPTION Clean Catch (test code = UASPEC) UA [id number] 15:16:00 Test Item Value Reference Range Interpretation Comments UA WBC (test code = WBCU) #/hpf <10 UA RBC (test code = RBCU) #/hpf NONE SEEN UA SQUAMOUS CELLS (test code = SQU) #/lpf <100 UA RFLX [id number] 15:16:00 Test Item Value Reference Range Interpretation Comments UA COLOR (test code = COLU) Yellow YELLOW UA APPEARANCE (test code = CLEAR CLEAR APPU) UA GLUCOSE DIPSTICK (test NEGATIVE mg/dL NEGATIVE code = DGLUU) UA BILIRUBIN DIPSTICK (test NEGATIVE NEGATIVE code = BILU) UA KETONE DIPSTICK (test code NEGATIVE mg/dL NEGATIVE = KETU) UA SPECIFIC GRAVITY (test 1.015 1.001-1.035 N code = SGU) UA BLOOD DIPSTICK (test code 4+ NEGATIVE A = JAGDISH) UA PH DIPSTICK (test code = 5.0 5.5-7.0 L OVIDIO) UA PROTEIN DIPSTICK (test 500 mg/dL NEGATIVE A code = PROU) UA UROBILINOGEN DIPSTICK NORMAL mg/dL NORMAL (test code = URO) UA NITRITE DIPSTICK (test NEGATIVE NEGATIVE code = SHEA) UA LEUKOCYTE ESTERASE NEGATIVE NEGATIVE DIPSTICK (test code = LEUU) UA COMMENT (test code = COMU) VOLUME 10-12 ML URINE SPECIMEN DESCRIPTION Clean Catch (test code = UASPEC) UA [id number] 15:16:00 Test Item Value Reference Range Interpretation Comments UA WBC (test code = WBCU) #/hpf <10 UA RBC (test code = RBCU) #/hpf NONE SEEN UA SQUAMOUS CELLS (test code = SQU) #/lpf <100 CBC W/AUTO [id number] 15:15:00 Test Item Value Reference Range Interpretation Comments WHITE BLOOD CELL (test code = 10.90 x10 3/uL 4.80-10.80 H WBC) RED BLOOD CELL (test code = 5.35 x10 6/uL 4.7-6.1 N RBC) HEMOGLOBIN (test code = HGB) 16.4 G/DL 14.0-17.0 N HEMATOCRIT (test code = HCT) 48.4 % 42-52 N MEAN CELL VOLUME (test code = 90.5 FL 80-94 N MCV) MEAN CELL HGB (test code = 30.7 PG 27-31 N MCH) MEAN CELL HGB CONCENTRATION 33.9 G/DL 33-37 N (test code = MCHC) RED CELL DISTRIBUTION WIDTH 14.2 % 11.5-14.5 N (test code = RDW) PLATELET COUNT (test code = 223 x10 3/uL 150-450 N PLT) MEAN PLATELET VOLUME (test 10.3 FL 7.4-10.4 N code = MPV) NEUTROPHIL % (test code = NT%) % 42-86 N LYMPHOCYTE % (test code = LY%) % 24-44 N MONOCYTE % (test code = MO%) % 0.0-4.0 H EOSINOPHIL % (test code = EO%) % 0.0-2.7 H BASOPHIL % (test code = BA%) % 0.0-0.5 N NEUTROPHIL # (test code = NT#) x10 3/uL 1.8-7.7 N LYMPHOCYTE # (test code = LY#) x10 3/uL 1.0-4.8 N MONOCYTE # (test code = MO#) x10 3/uL 0.0-0.8 H EOSINOPHIL # (test code = EO#) x10 3/uL 0.0-0.5 N BASOPHIL # (test code = BA#) x10 3/uL 0.0-0.2 N PROTHROMBIN [id number] 12:07:00 Test Item Value Reference Range Interpretation Comments PROTHROMBIN TIME 10.4 SECONDS 9.3-12.4 N Referen ce Range PATIENT (test code = revised from 9.3-12.4 PTP) as of 09/21/18. INTERNATIONAL NORMAL 1.03 Recomme nded INR range RATIO (test code = (warfarin therapy): INR) 2.0 - 3.0I NR (International Normalized Rati o) should beused w hen interpreting or al anticoaglulant therapy. For at rial fibrillation an d treatment orprevention of deep vein thrombosis . Patients with Palmaz-Amado s tent *: 2 .0 - 3.0 Patients wi th mechanical hear t valve *: 2.5 - 3.5 Patients with flex-stent *: 3.0 - 4.0(*) = gas leak inspector's suggested range Is patient on anticoagulants? No AnticoagulantsTHROMBOPLASTIN TIME PARTIAL 2019-08-31 12:07:00 Test Item Value Reference Range Interpretation Comments THROMBOPLASTIN TIME 25.8 SECONDS 21.8-35.9 N *Therap eutic level PARTIAL (test code = for hep lyn: 1.5 - PTT) 2.5 times the average patient value of 30.0 seconds. The a PTT should not be u sed to evaluate LMW heparin anticoagulant therapy. Reference Range revised from 21.8-35.9 as of 09/21/2018 Is patient on anticoagulants? No AnticoagulantsBASIC METABOLIC [id number] 11:59:00 Test Item Value Reference Range Interpretation Comments SODIUM (test code = 141 MMOL/L 133-145 N NA) POTASSIUM (test code = 4.3 MMOL/L 3.6-5.2 N K) CHLORIDE (test code = 107 MMOL/L 100-108 N CL) CARBON DIOXIDE (test 26 MMOL/L 22-32 N code = CO2) GLUCOSE (test code = 102 MG/DL 65-99 H Results of this assay GLU) method may be f alsely depressed orele vated if patient is t aking sulfasalazine. BLOOD UREA NITROGEN 22 MG/DL 6-20 H (test code = BUN) GLOMERULAR FILTRATION 59 56-130 N Report ing units: RATE (test code = GFR) mL/mi n/1.73m\S\2 (Modified MDRD Formula) CREATININE (test code 1.28 MG/DL 0.60-1.00 H = CREAT) CALCIUM (test code = 8.8 MG/DL 8.7-10.5 N CA) HEPATIC FUNCTION [id number] 11:59:00 Test Item Value Reference Range Interpretation Comments TOTAL PROTEIN (test 6.7 G/DL 6.4-8.2 N code = PROT) ALBUMIN (test code = 1.8 G/DL 3.4-5.0 L ALB) GLOBULIN (test code = 4.9 G/DL 1.5-3.8 H GLOB) ALBUMIN/GLOBULIN RATIO 0.4 1.1-2.2 L (test code = A/G) BILIRUBIN TOTAL (test 0.2 MG/DL 0.0-1.0 N code = BILT) BILIRUBIN DIRECT (test 0.1 MG/DL 0.0-0.3 N code = BILD) BILIRUBIN INDIRECT 0.1 MG/DL 0.0-0.7 N (test code = BILIND) SGOT/AST (test code = 48 Units/L 15-37 H Result s of this assay AST) method may be f alsely depressed orele vated if patient is t aking sulfasalazine. SGPT/ALT (test code = 21 Units/L 30-65 L Result s of this assay ALT) method may be f alsely depressed orele vated if patient is t aking sulfasalazine. ALKALINE PHOSPHATASE 75 Units/L 50-136 N TOTAL (test code = ALKP) [id number] 11:59:00 Test Item Value Reference Range Interpretation Comments LIPASE (test code = LIP) 89 Units/L 73-393 N NT PRO-BRAIN NATRIURETIC [id number] 11:59:00 Test Item Value Reference Range Interpretation Comments NT PRO-BRAIN 2095 PG/ML 0-125 H Results of this assay NATRIURETIC PEPTI method may be falsely (test code = PROBNP) depress ed orelevated if patient is t aking high doses of B iotin. - XR CHEST 1 [id number] 11:41:00 Patient Name: RICKY GARBER Unit No: [id number] EXAMS: CPT CODE: [id number] XR CHEST 1 V [id number] Reason: chest pain - XR CHEST 1 V 11:06 AM A frontal portable chest shows mild increased basilar interstitial markings with some parabronchial cuffing. No lobar or segmental consolidation isseen. Pleural spaces are clear. The cardiac and mediastinal silhouettes are normal. The bonesare unremarkable. IMPRESSION: There are mild increased interstitial markings with parabronchial cuffing in the bases. Correlate for bronchitis. at 1141 Reported and signed by: Mitch Finch MD CC: Val Watkins CUSTOMER RELATIONS ASSISTANT; Andres Segura DO Technologist: Mago Rodriguez CT Trscrpt Dt/ ([id number] Orig Print D/T: S: 08/31/2019 (1140) [place] NAME: RICKY GARBER [address] [place] [address] PHYS: Andres Horan DO [address] : 1970 AGE: 49 SEX: M [place], [place] [address] LOC: D.PER PHONE #: [phone] EXAM DATE: 08/31/2019 STATUS: REG ER FAX #: RAD NO: DC Dt: PAGE 1 Signed ReportBASIC METABOLIC [id number] 11:33:00 Test Item Value Reference Range Interpretation Comments SODIUM (test code = 141 MMOL/L 133-145 N NA) POTASSIUM (test code = 4.3 MMOL/L 3.6-5.2 N K) CHLORIDE (test code = 107 MMOL/L 100-108 N CL) CARBON DIOXIDE (test 26 MMOL/L 22-32 N code = CO2) GLUCOSE (test code = 102 MG/DL 65-99 H Results of this assay GLU) method may be f alsely depressed orele vated if patient is t aking sulfasalazine. BLOOD UREA NITROGEN 22 MG/DL 6-20 H (test code = BUN) GLOMERULAR FILTRATION 59 56-130 N Report ing units: RATE (test code = GFR) mL/mi n/1.73m\S\2 (Modified MDRD Formula) CREATININE (test code 1.28 MG/DL 0.60-1.00 H = CREAT) CALCIUM (test code = 8.8 MG/DL 8.7-10.5 N CA) HEPATIC FUNCTION [id number] 11:33:00 Test Item Value Reference Range Interpretation Comments TOTAL PROTEIN (test code = PROT) G/DL 6.4-8.2 ALBUMIN (test code = ALB) G/DL 3.4-5.0 GLOBULIN (test code = GLOB) G/DL 1.5-3.8 ALBUMIN/GLOBULIN RATIO (test code = 1.1-2.2 A/G) BILIRUBIN TOTAL (test code = BILT) MG/DL 0.0-1.0 BILIRUBIN DIRECT (test code = BILD) MG/DL 0.0-0.3 SGOT/AST (test code = AST) Units/L 15-37 SGPT/ALT (test code = ALT) Units/L 30-65 ALKALINE PHOSPHATASE TOTAL (test Units/L 50-136 code = ALKP) [id number] 11:33:00 Test Item Value Reference Range Interpretation Comments LIPASE (test code = LIP) Units/L 73-393 NT PRO-BRAIN NATRIURETIC [id number] 11:33:00 Test Item Value Reference Range Interpretation Comments NT PRO-BRAIN NATRIURETIC PEPTI (test PG/ML 0-125 code = PROBNP) TROPONIN I [id number] 11:23:00 Test Item Value Reference Range Interpretation Comments TROPONIN I RAPID 0.07 NG/ML 0.00-0.08 N Performed b y certified (test code = operator maintainer at [facility]) EC - The use o f serial sampling and te sting protocol is a recommended pra ctice.- An elevated tro ponin level alone is often not sufficient for diagnosis of my ocardial infarction. CBC W/AUTO [id number] 11:17:00 Test Item Value Reference Range Interpretation Comments WHITE BLOOD CELL (test code = 10.17 x10 3/uL 4.80-10.80 N WBC) RED BLOOD CELL (test code = 4.98 x10 6/uL 4.7-6.1 N RBC) HEMOGLOBIN (test code = HGB) 15.4 G/DL 14.0-17.0 N HEMATOCRIT (test code = HCT) 45.6 % 42-52 N MEAN CELL VOLUME (test code = 91.6 FL 80-94 N MCV) MEAN CELL HGB (test code = 30.9 PG 27-31 N MCH) MEAN CELL HGB CONCENTRATION 33.8 G/DL 33-37 N (test code = MCHC) RED CELL DISTRIBUTION WIDTH 13.9 % 11.5-14.5 N (test code = RDW) PLATELET COUNT (test code = 240 x10 3/uL 150-450 N PLT) MEAN PLATELET VOLUME (test 9.5 FL 7.4-10.4 N code = MPV) NEUTROPHIL % (test code = NT%) 63.5 % 42-86 N LYMPHOCYTE % (test code = LY%) 24.2 % 24-44 N MONOCYTE % (test code = MO%) 6.8 % 0.0-4.0 H EOSINOPHIL % (test code = EO%) 5.1 % 0.0-2.7 H BASOPHIL % (test code = BA%) 0.4 % 0.0-0.5 N NEUTROPHIL # (test code = NT#) 6.46 x10 3/uL 1.8-7.7 N LYMPHOCYTE # (test code = LY#) 2.46 x10 3/uL 1.0-4.8 N MONOCYTE # (test code = MO#) 0.69 x10 3/uL 0.0-0.8 N EOSINOPHIL # (test code = EO#) 0.52 x10 3/uL 0.0-0.5 H BASOPHIL # (test code = BA#) 0.04 x10 3/uL 0.0-0.2 N CBC W/AUTO [id number] 06:53:00 Test Item Value Reference Range Interpretation Comments WHITE BLOOD CELL (test code = 12.85 x10 3/uL 4.80-10.80 H WBC) RED BLOOD CELL (test code = 4.49 x10 6/uL 4.7-6.1 L RBC) HEMOGLOBIN (test code = HGB) 13.9 G/DL 14.0-17.0 L HEMATOCRIT (test code = HCT) 41.7 % 42-52 L MEAN CELL VOLUME (test code = 92.9 FL 80-94 N MCV) MEAN CELL HGB (test code = 31.0 PG 27-31 N MCH) MEAN CELL HGB CONCENTRATION 33.3 G/DL 33-37 N (test code = MCHC) RED CELL DISTRIBUTION WIDTH 13.4 % 11.5-14.5 N (test code = RDW) PLATELET COUNT (test code = 218 x10 3/uL 150-450 N PLT) MEAN PLATELET VOLUME (test 10.2 FL 7.4-10.4 N code = MPV) NEUTROPHIL % (test code = NT%) 72.1 % 42-86 N IMMATURE GRANULOCYTE % (test 0.5 % 0.0-2.0 N code = IG%) LYMPHOCYTE % (test code = LY%) 19.3 % 24-44 L MONOCYTE % (test code = MO%) 7.6 % 0.0-4.0 H EOSINOPHIL % (test code = EO%) 0.2 % 0.0-2.7 N BASOPHIL % (test code = BA%) 0.3 % 0.0-0.5 N NUCLEATED RBC % (test code = 0.0 % 0.0-0.0 N NRBC%) NEUTROPHIL # (test code = NT#) 9.26 x10 3/uL 1.8-7.7 H IMMATURE GRANULOCYTE # (test 0.06 x10 3/uL 0.00-0.03 H code = IG#) LYMPHOCYTE # (test code = LY#) 2.48 x10 3/uL 1.0-4.8 N MONOCYTE # (test code = MO#) 0.98 x10 3/uL 0.0-0.8 H EOSINOPHIL # (test code = EO#) 0.03 x10 3/uL 0.0-0.5 N BASOPHIL # (test code = BA#) 0.04 x10 3/uL 0.0-0.2 N NUCLEATED RBC # (test code = 0.0 X10 3/uL 0.0-0.2 N NRBC#) BASIC METABOLIC [id number] 06:52:00 Test Item Value Reference Range Interpretation Comments SODIUM (test code = 140 MMOL/L 133-145 N NA) POTASSIUM (test code = 4.1 MMOL/L 3.6-5.2 N K) CHLORIDE (test code = 107 MMOL/L 100-108 N CL) CARBON DIOXIDE (test 26 MMOL/L 22-32 N code = CO2) GLUCOSE (test code = 102 MG/DL 65-99 H Results of this assay GLU) method may be f alsely depressed orele vated if patient is t aking sulfasalazine. BLOOD UREA NITROGEN 20 MG/DL 6-20 N (test code = BUN) GLOMERULAR FILTRATION 68 56-130 N Report ing units: RATE (test code = GFR) mL/mi n/1.73m\S\2 (Modified MDRD Formula) CREATININE (test code 1.14 MG/DL 0.60-1.00 H = CREAT) CALCIUM (test code = 7.7 MG/DL 8.7-10.5 L CA) [id number] 06:52:00 Test Item Value Reference Range Interpretation Comments PHOSPHOROUS (test code = PHOS) 3.0 MG/DL 2.5-4.9 N [id number] 06:52:00 Test Item Value Reference Range Interpretation Comments MAGNESIUM (test code = MAG) 1.7 MG/DL 1.8-2.4 L GLYCOSYLATED HEMOGLOBIN (HA1C)2019-06-16 22:02:00 Test Item Value Reference Range Interpretation Comments GLYCOSYLATED HEMOGLOBIN (HA1C) 5.4 % TOT HB 4.5-6.2 N (test code = GLYHGB) LIPID PROFILE (CORONARY RISK)2019-06-16 22:01:00 Test Item Value Reference Range Interpretation Comments TRIGLYCERIDES (test 61 MG/DL 30-200 N code = TRIG) CHOLESTEROL (test code 185 MG/DL 122-200 N = CHOL) CHOLESTEROL/HDL RATIO 2.5 1.5-4.5 N 1. I nitial (test code = CHOLHDL) classi fication based on total choles terol: <200 mg/dl Desirable chol esterol 200-239 m g/dl Borderline hi gh risk cholesterol >240 mg/dl H igh risk cholestero l2. Initial classif ication based on LDL cholesterol: <130 mg/dl Desirable LDL cholesterol 130-159 mg/dl Borderline high risk LDL >159 mg/dl High risk LDL cholesterol3. HDL < 35 mg/dl repres ent increased CHD r isk; HDL > 60 mg/dl represent decre ased CHD risk.4. C hol/HDL > 5.0 represent increased CHD risk in men; Chol/H DL > 4.5 represent increased CHD risk in women. HDL CHOLESTEROL (test 73 MG/DL 40-60 H code = HDL) LIPOPROTEIN LDL (test 100 MG/DL 62-130 N code = LDL) LIPOPROTEIN VLDL (test 12 MG/DL 3-60 N code = VLDL) T4 [id number] 22:01:00 Test Item Value Reference Range Interpretation Comments T4 FREE (test code 1.11 ng/dl 0.59-1.17 N Results o f this assay = T4F) method may be f alsely depressed orele vated if patient is taki ng high doses of Biotin . [id number] 22:01:00 Test Item Value Reference Range Interpretation Comments TROPONIN-I (test < 0.04 NG/ML 0.00-0.06 N - The use of serial code = TROPI) sampling and t esting protocol is a recommended pra ctice.- An elevated tro ponin level alone is often not sufficient fo r diagnosis of my ocardial infarction.Resu lts of this assay meth od may be falsely depress ed orelevated if p atient is taking high dos es of Biotin. LIPID PROFILE (CORONARY RISK)2019-06-16 21:43:00 Test Item Value Reference Range Interpretation Comments TRIGLYCERIDES (test code = TRIG) MG/DL 30-200 CHOLESTEROL (test code = CHOL) MG/DL 122-200 CHOLESTEROL/HDL RATIO (test code = 1.5-4.5 CHOLHDL) HDL CHOLESTEROL (test code = HDL) MG/DL 40-60 T4 [id number] 21:43:00 Test Item Value Reference Range Interpretation Comments T4 FREE (test code = T4F) ng/dl 0.59-1.17 [id number] 21:43:00 Test Item Value Reference Range Interpretation Comments TROPONIN-I (test < 0.04 NG/ML 0.00-0.06 N - The use of serial code = TROPI) sampling and t esting protocol is a recommended pra ctice.- An elevated tro ponin level alone is often not sufficient fo r diagnosis of my ocardial infarction.Resu lts of this assay meth od may be falsely depress ed orelevated if p atient is taking high dos es of Biotin. DRUG OF ABUSE SCREEN [id number] 17:26:00 Test Item Value Reference Interpretation Comments Range UR COCAINE (test NEGATIVE NEGATIVE code = COCAU) UR MDMA (test code = NEGATIVE NEGATIVE MDMAQLU) UR CANNABINOIDS POSITIVE NEGATIVE A If confirmat ory testing (test code = CANU) required, contact laboratory. UR AMPHETAMINE (test NEGATIVE NEGATIVE code = AMPHU) UR BARBITURATE QUAL NEGATIVE NEGATIVE (test code = BARBQLU) UR BENZODIAZEPINE NEGATIVE NEGATIVE (test code = BENZU) UR OPIATES QUAL NEGATIVE NEGATIVE (test code = OPIAQLU) UR PHENCYCLIDINE NEGATIVE NEGATIVE Urine Drug Abuse Screen (PCP) (test code = provides preliminary PHENCU) results thatmay be confirmed by mil lozada methods (i.e., GC/MS) at [facility]. Results of scre en may not be usedin crimi nal justice, job performance or professionalcre dential review, or infa nt custody issues. Negativ e [place] Level ng/ml ------- ----- Cocaine 300 Methamp hetamine (Ecstacy) 500 Cannabinoids (THC) 50 Amphetamine 1000 Barbiturate s 200 Benzodia zepines 200 Opiat es 300 Ph encyclidine (PCP) 25 UA RFLX [id number] 17:25:00 Test Item Value Reference Range Interpretation Comments UA COLOR (test code = COLU) DARK YELLOW YELLOW UA APPEARANCE (test code = CLEAR CLEAR APPU) UA GLUCOSE DIPSTICK (test NEGATIVE mg/dL NEGATIVE code = DGLUU) UA BILIRUBIN DIPSTICK (test NEGATIVE NEGATIVE code = BILU) UA KETONE DIPSTICK (test code NEGATIVE mg/dL NEGATIVE = KETU) UA SPECIFIC GRAVITY (test 1.015 1.001-1.035 N code = SGU) UA BLOOD DIPSTICK (test code 4+ NEGATIVE A = JAGDISH) UA PH DIPSTICK (test code = 6.0 5.5-7.0 N OVIDIO) UA PROTEIN DIPSTICK (test 500 mg/dL NEGATIVE A code = PROU) UA UROBILINOGEN DIPSTICK NORMAL mg/dL NORMAL (test code = URO) UA NITRITE DIPSTICK (test NEGATIVE NEGATIVE code = SHEA) UA LEUKOCYTE ESTERASE NEGATIVE NEGATIVE DIPSTICK (test code = LEUU) UA COMMENT (test code = COMU) VOLUME 10-12 ML URINE SPECIMEN DESCRIPTION Clean Catch (test code = UASPEC) UA [id number] 17:25:00 Test Item Value Reference Range Interpretation Comments UA WBC (test code = WBCU) < 10 #/hpf <10 UA RBC (test code = RBCU) 5-10 #/hpf NONE SEEN A UA SQUAMOUS CELLS (test code = 0 - 20 #/lpf <100 SQU) UA HYALINE CAST (test code = 0-2 #/lpf A HYALU) UA RFLX [id number] 17:18:00 Test Item Value Reference Range Interpretation Comments UA COLOR (test code = COLU) DARK YELLOW YELLOW UA APPEARANCE (test code = CLEAR CLEAR APPU) UA GLUCOSE DIPSTICK (test NEGATIVE mg/dL NEGATIVE code = DGLUU) UA BILIRUBIN DIPSTICK (test NEGATIVE NEGATIVE code = BILU) UA KETONE DIPSTICK (test code NEGATIVE mg/dL NEGATIVE = KETU) UA SPECIFIC GRAVITY (test 1.015 1.001-1.035 N code = SGU) UA BLOOD DIPSTICK (test code 4+ NEGATIVE A = JAGDISH) UA PH DIPSTICK (test code = 6.0 5.5-7.0 N OVIDIO) UA PROTEIN DIPSTICK (test 500 mg/dL NEGATIVE A code = PROU) UA UROBILINOGEN DIPSTICK NORMAL mg/dL NORMAL (test code = URO) UA NITRITE DIPSTICK (test NEGATIVE NEGATIVE code = SHEA) UA LEUKOCYTE ESTERASE NEGATIVE NEGATIVE DIPSTICK (test code = LEUU) UA COMMENT (test code = COMU) VOLUME 10-12 ML URINE SPECIMEN DESCRIPTION Clean Catch (test code = UASPEC) UA [id number] 17:18:00 Test Item Value Reference Range Interpretation Comments UA WBC (test code = WBCU) #/hpf <10 UA RBC (test code = RBCU) #/hpf NONE SEEN UA SQUAMOUS CELLS (test code = SQU) #/lpf <100 UA RFLX [id number] 17:18:00 Test Item Value Reference Range Interpretation Comments UA COLOR (test code = COLU) DARK YELLOW YELLOW UA APPEARANCE (test code = CLEAR CLEAR APPU) UA GLUCOSE DIPSTICK (test NEGATIVE mg/dL NEGATIVE code = DGLUU) UA BILIRUBIN DIPSTICK (test NEGATIVE NEGATIVE code = BILU) UA KETONE DIPSTICK (test code NEGATIVE mg/dL NEGATIVE = KETU) UA SPECIFIC GRAVITY (test 1.015 1.001-1.035 N code = SGU) UA BLOOD DIPSTICK (test code 4+ NEGATIVE A = JAGDISH) UA PH DIPSTICK (test code = 6.0 5.5-7.0 N OVIDIO) UA PROTEIN DIPSTICK (test 500 mg/dL NEGATIVE A code = PROU) UA UROBILINOGEN DIPSTICK NORMAL mg/dL NORMAL (test code = URO) UA NITRITE DIPSTICK (test NEGATIVE NEGATIVE code = SHEA) UA LEUKOCYTE ESTERASE NEGATIVE NEGATIVE DIPSTICK (test code = LEUU) UA COMMENT (test code = COMU) VOLUME 10-12 ML URINE SPECIMEN DESCRIPTION Clean Catch (test code = UASPEC) UA [id number] 17:18:00 Test Item Value Reference Range Interpretation Comments UA WBC (test code = WBCU) #/hpf <10 UA RBC (test code = RBCU) #/hpf NONE SEEN UA SQUAMOUS CELLS (test code = SQU) #/lpf <100 TROPONIN I [id number] 17:16:00 Test Item Value Reference Range Interpretation Comments TROPONIN I RAPID 0.01 NG/ML 0.00-0.08 N Performed b y certified (test code = operator maintainer at [facility]) EC - The use o f serial sampling and te sting protocol is a recommended pra ctice.- An elevated tro ponin level alone is often not sufficient for diagnosis of my ocardial infarction. THYROID STIMULATING [id number] 16:07:00 Test Item Value Reference Range Interpretation Comments THYROID STIMULATING 4.18 0.42-5.47 N Micro-In ternational HORMONE (test code = TSH) Un its/L BASIC METABOLIC [id number] 15:10:00 Test Item Value Reference Range Interpretation Comments SODIUM (test code = 142 MMOL/L 133-145 N NA) POTASSIUM (test code = 4.0 MMOL/L 3.6-5.2 N K) CHLORIDE (test code = 107 MMOL/L 100-108 N CL) CARBON DIOXIDE (test 27 MMOL/L 22-32 N code = CO2) GLUCOSE (test code = 82 MG/DL 65-99 N Results of this assay GLU) method may be f alsely depressed orele vated if patient is t aking sulfasalazine. BLOOD UREA NITROGEN 17 MG/DL 6-20 N (test code = BUN) GLOMERULAR FILTRATION 60 56-130 N Report ing units: RATE (test code = GFR) mL/mi n/1.73m\S\2 (Modified MDRD Formula) CREATININE (test code 1.26 MG/DL 0.60-1.00 H = CREAT) CALCIUM (test code = 8.0 MG/DL 8.7-10.5 L CA) HEPATIC FUNCTION [id number] 15:10:00 Test Item Value Reference Range Interpretation Comments TOTAL PROTEIN (test 6.9 G/DL 6.4-8.2 N code = PROT) ALBUMIN (test code = 2.0 G/DL 3.4-5.0 L ALB) GLOBULIN (test code = 4.9 G/DL 1.5-3.8 H GLOB) ALBUMIN/GLOBULIN RATIO 0.4 1.1-2.2 L (test code = A/G) BILIRUBIN TOTAL (test 0.3 MG/DL 0.0-1.0 N code = BILT) BILIRUBIN DIRECT (test 0.1 MG/DL 0.0-0.3 N code = BILD) BILIRUBIN INDIRECT 0.2 MG/DL 0.0-0.7 N (test code = BILIND) SGOT/AST (test code = 56 Units/L 15-37 H Result s of this AST) assay method ma y be falsely depress ed orelevated if patient is taki ng sulfasalazine. SGPT/ALT (test code = 26 Units/L 30-65 L Result s of this ALT) assay method ma y be falsely depress ed orelevated if patient is taki ng sulfasalazine. ALKALINE PHOSPHATASE 103 Units/L 50-136 N TOTAL (test code = ALKP) [id number] 15:10:00 Test Item Value Reference Range Interpretation Comments LIPASE (test code = LIP) 94 Units/L 73-393 N [id number] 15:10:00 Test Item Value Reference Range Interpretation Comments MAGNESIUM (test code = MAG) 1.8 MG/DL 1.8-2.4 N NT PRO-BRAIN NATRIURETIC [id number] 15:10:00 Test Item Value Reference Range Interpretation Comments NT PRO-BRAIN 1383 PG/ML 0-125 H Results of this assay NATRIURETIC PEPTI method may be falsely (test code = PROBNP) depress ed orelevated if patient is t aking high doses of B iotin. D-DIMER [id number] 15:10:00 Test Item Value Reference Range Interpretation Comments D-DIMER QUANT (test 117 D-DU 0-400 N [place] Triage values code = DDIMER) presented in units of mass (ng/mL)of D-dim er, also known as D-dime r units (D-DU).* Cut-of f: 400 ng/mL Results o f the D-Dimer test sh ould always be interpretedi n conjunction wit h the patient's medic al history, clinicalpresent ation, and other findings. Clinical diagnosis shoul dnot be based on the re sults of D-Dimer alone.P atients with a distal D VT may have a normal D-Dime r result. - XR CHEST 2 [id number] 15:02:00 Patient Name: RICKY GARBER Unit No: [id number] EXAMS: CPT CODE: [id number] XR CHEST 2 V [id number] Reason: chest pain History: chest pain. Technique: 2 views of chest. Comparison: None. Findings:HEART AND MEDIASTINUM: Within normal limits. LUNGS: Linear area of atelectasis is identified in the left lower lung. Impression: 1. Linear area ofatelectasis identified the left lower lung. 2. The remaining lungs are clear. at 1502 Reported and signed by: Antione Jay MD CC: Erick Moon MD Technologist: Mago Rodriguez CT Trscrpt Dt/ ([email or web address] Orig Print D/T: S: 06/16/2019 (1506) [place] NAME: RICKY GARBER [address] PHYS: Erick Aden MD [address] : 1970 AGE: 49 SEX: M [place], [place] [address] LOC: D.PER PHONE#: [phone] EXAM DATE: 06/16/2019 STATUS: REG ER FAX #: RAD NO: DC Dt: PAGE 1 Signed ReportBASIC METABOLIC PANEL 2019-06-16 14:58:00 Test Item Value Reference Range Interpretation Comments SODIUM (test code = 142 MMOL/L 133-145 N NA) POTASSIUM (test code = 4.0 MMOL/L 3.6-5.2 N K) CHLORIDE (test code = 107 MMOL/L 100-108 N CL) CARBON DIOXIDE (test 27 MMOL/L 22-32 N code = CO2) GLUCOSE (test code = 82 MG/DL 65-99 N Results of this assay GLU) method may be f alsely depressed orele vated if patient is t aking sulfasalazine. BLOOD UREA NITROGEN 17 MG/DL 6-20 N (test code = BUN) GLOMERULAR FILTRATION 60 56-130 N Report ing units: RATE (test code = GFR) mL/mi n/1.73m\S\2 (Modified MDRD Formula) CREATININE (test code 1.26 MG/DL 0.60-1.00 H = CREAT) CALCIUM (test code = 8.0 MG/DL 8.7-10.5 L CA) HEPATIC FUNCTION [id number] 14:58:00 Test Item Value Reference Range Interpretation Comments TOTAL PROTEIN (test code = PROT) G/DL 6.4-8.2 ALBUMIN (test code = ALB) G/DL 3.4-5.0 GLOBULIN (test code = GLOB) G/DL 1.5-3.8 ALBUMIN/GLOBULIN RATIO (test code = 1.1-2.2 A/G) BILIRUBIN TOTAL (test code = BILT) MG/DL 0.0-1.0 BILIRUBIN DIRECT (test code = BILD) MG/DL 0.0-0.3 SGOT/AST (test code = AST) Units/L 15-37 SGPT/ALT (test code = ALT) Units/L 30-65 ALKALINE PHOSPHATASE TOTAL (test Units/L 50-136 code = ALKP) [id number] 14:58:00 Test Item Value Reference Range Interpretation Comments LIPASE (test code = LIP) Units/L 73-393 [id number] 14:58:00 Test Item Value Reference Range Interpretation Comments MAGNESIUM (test code = MAG) MG/DL 1.8-2.4 NT PRO-BRAIN NATRIURETIC [id number] 14:58:00 Test Item Value Reference Range Interpretation Comments NT PRO-BRAIN NATRIURETIC PEPTI (test PG/ML 0-125 code = PROBNP) CBC W/AUTO [id number] 14:52:00 Test Item Value Reference Range Interpretation Comments WHITE BLOOD CELL (test code = 10.35 x10 3/uL 4.80-10.80 N WBC) RED BLOOD CELL (test code = 4.93 x10 6/uL 4.7-6.1 N RBC) HEMOGLOBIN (test code = HGB) 15.3 G/DL 14.0-17.0 N HEMATOCRIT (test code = HCT) 45.7 % 42-52 N MEAN CELL VOLUME (test code = 92.7 FL 80-94 N MCV) MEAN CELL HGB (test code = 31.0 PG 27-31 N MCH) MEAN CELL HGB CONCENTRATION 33.5 G/DL 33-37 N (test code = MCHC) RED CELL DISTRIBUTION WIDTH 14.3 % 11.5-14.5 N (test code = RDW) PLATELET COUNT (test code = 232 x10 3/uL 150-450 N PLT) MEAN PLATELET VOLUME (test 9.9 FL 7.4-10.4 N code = MPV) NEUTROPHIL % (test code = NT%) 49.4 % 42-86 N LYMPHOCYTE % (test code = LY%) 36.1 % 24-44 N MONOCYTE % (test code = MO%) 8.9 % 0.0-4.0 H EOSINOPHIL % (test code = EO%) 5.3 % 0.0-2.7 H BASOPHIL % (test code = BA%) 0.3 % 0.0-0.5 N NEUTROPHIL # (test code = NT#) 5.11 x10 3/uL 1.8-7.7 N LYMPHOCYTE # (test code = LY#) 3.74 x10 3/uL 1.0-4.8 N MONOCYTE # (test code = MO#) 0.92 x10 3/uL 0.0-0.8 H EOSINOPHIL # (test code = EO#) 0.55 x10 3/uL 0.0-0.5 H BASOPHIL # (test code = BA#) 0.03 x10 3/uL 0.0-0.2 N TROPONIN I [id number] 14:31:00 Test Item Value Reference Range Interpretation Comments TROPONIN I RAPID 0.02 NG/ML 0.00-0.08 N Performed b y certified (test code = operator maintainer at [facility]) EC - The use o f serial sampling and te sting protocol is a recommended pra ctice.- An elevated tro ponin level alone is often not sufficient for diagnosis of my ocardial infarction.
--- OUTSIDE RECORDS SUMMARY | 2020-05-12 02:19 | XMS REPORT | Summary of Care ---
:1970 Author Organization [facility] - [facility] Address [address] [place] [address] Care Team Providers Name Role Phone Pcp, Patient Does Not Have A Primary Care Provider +[id number] 0-0000 Reason for Referral Radiology Services (STAT) Status Reason Specialty Diagnoses / Referred By Referred To Procedures Contact Contact New Request Diagnostic Diagnoses Chest pain in adult Juan Miguel Espinoza MD Radiology Procedures Chest [address] [place] [phone] MRI/CAT Scan (STAT) Status Reason Specialty Diagnoses / Referred By Referred To Procedures Contact Contact New Request Diagnostic Diagnoses Chest pain in adult Juan Miguel Espinoza MD Radiology Procedures CT Head W/O Contrast [address] [place] [phone] Reason for Visit Reason Comments Headache Chest Pain Auth/Cert Status Reason Specialty Diagnoses / Referred By Referred To Procedures Contact Contact [facility] [address] [place] [phone] Fax: Encounter Details Date Type Department Care Team Description 05/09/2020 Emergency [facility] Juan Miguel Espinoza M D Hypertensive emergency (Primary Dx); Department [address] [place] [address] Chest pain in adult [address] [place] [phone] [place], [place] [phone] Allergies Active Allergy Reactions Severity Noted Date Comments Lisinopril Unknown - See comments 05/09/2020 documented as of this encounter (statuses as of 05/09/2020) Medications Medication Sig Dispensed Refills Start Date End Date Status amLODIPine 10 mg Take 1 tablet by 10 tablet 0 05/09/2020 Active tabletIndications: mouth daily. Hypertensive emergency metoprolol tartrate 50 Take 1 tablet by 20 tablet 0 05/09/2020 Active mg tabletIndications: mouth 2 (two) Hypertensive emergency times daily. sildenafil 20 mg Take 1 tablet by 10 tablet 0 05/09/2020 Active tabletIndications: mouth daily. Hypertensive emergency tamsulosin 0.4 mg 24 Take 1 capsule by 10 capsule 0 05/09/2020 Active hr capsuleIndications: mouth at bedtime. Hypertensive emergency documented as of this encounter (statuses as of 05/09/2020) Active Problems No known active problemsdocumented as of this encounter (statuses as of 05/09/2020) Social History Tobacco Use Types Packs/Day Years Used Date Never Assessed Sex Assigned at Date Recorded Not on file Job Start Date Occupation Industry Not on file Not on file Not on file Travel History Travel Start Travel End No recent travel history available. COVID-19 Exposure Response Date Recorded In the last month, have you been in contact with No / Unsure 05/09/2020 2:39 PM CDT someone who was confirmed or suspected to have Coronavirus / COVID-19? documented as of this encounter Last Filed Vital Signs Vital Sign Reading Time Taken Comments Blood Pressure 181/126 05/09/2020 3:00 PM CDT Pulse 92 05/09/2020 3:00 PM CDT Temperature 37.1 C (98.7 F) 05/09/2020 2:41 PM CDT Respiratory Rate 18 05/09/2020 3:00 PM CDT Oxygen Saturation 95% 05/09/2020 3:00 PM CDT Inhaled Oxygen Concentration - - Weight 99.8 kg (220 lb 0.3 oz) 05/09/2020 2:41 PM CDT Height - - Body Mass Index - - documented in this encounter Discharge Instructions InstructionsMorita, Juan Miguel Abdi MD - 05/09/2020 Your diagnosis is: Hypertensive Emergency - you are leaving AMA Your treatments today included: Orders Placed This Encounter Procedures CT Head W/O Contrast Chest 1 View CBC with Differential Basic Metabolic Panel (NA, K, CL, CO2, GLUCOSE, BUN, CREATININE, CA) Hepatic Function Panel (ALB, T.PRO, BILI T, BU/BC, ALT, AST, ALK PHOS) Troponin I N-TERMINAL PRO-BNP THYROID STIMULATING HORMONE CONSULT CARDIOLOGY If you have more chest pain, headache, blurred vision, or any other concerns - return immediately. Your prescriptions today are: Refill of your normal medications You will need to follow-up with your Primary Care Provider: 1 day(s) If you do not have a primary care provider, you will need to arrange for your own. If you need assistance with this, the discharge planners can help you identify resources appropriate for you. documented in this encounter Plan of Treatment Name Type Priority Associated Diagnoses Date/Ti me Chest 1 View IMAGING STAT Chest pain in adult 05/09/20 20 3:11 PM CDT Health Maintenance Due Date Last Done Comments DTaP,Tdap,and Td Vaccines (1 - 1979 Tdap) Depression Screening 1980 COLONOSCOPY 2018 Zoster Recombinant Vaccine 2018 (SHINGRIX) (1 of 2) INFLUENZA VACCINE (#1) 2020 PNEUMOCOCCAL 0-64 YEARS COMBINED Aged Out No longer eligible based on SERIES patient's age to complete this topic documented as of this encounter Procedures Procedure Name Priority Date/Time Associated Diagnosis Comme nts CT HEAD WO CONTRAST STAT 05/09/2020 3:21 PM Chest pain in adult Results for this CDT procedure are i n the results section. XR CHEST 1 VW STAT 05/09/2020 3:11 PM Chest pain in adult CDT Procedure Note - [facility], Radia nt Results Inft User - 05/09/2020 3:28 PM CDT XR CHEST 1 VW HISTORY: HTN COMPARISON: None available FINDINGS: The lungs are clear. No foca l consolidation is present. No pleural effusion or pneum othorax is present. The cardiomediastinal silhou ette is normal. The osseous structures are u nremarkable. IMPRESSION No acute cardiopulmonary abn ormality is present. Preliminary Report Dictated by Resident: Isabella Guadalupe THYROID STIMULATING STAT 05/09/2020 3:03 PM Chest pain in Results for this HORMONE CDT adult procedure are i n the results section . EXTRA TUBE ORANGE STAT 05/09/2020 2:50 PM CDT EXTRA TUBE LT. BLUE STAT 05/09/2020 2:50 PM CDT N-TERMINAL PRO-BNP STAT 05/09/2020 2:50 PM Chest pain in R esults for this CDT adult procedure are i n the results section . CBC WITH DIFF STAT 05/09/2020 2:50 PM Chest pain in Result s for this CDT adult procedure are i n the results section . BASIC METABOLIC PANEL STAT 05/09/2020 2:50 PM Chest pain i n Results for this (NA, K, CL, CO2, CDT adult procedure a re in the GLUCOSE, BUN, results sectio n. CREATININE, CA) HEPATIC FUNCTION PANEL STAT 05/09/2020 2:50 PM Chest pain in Results for this (16476) (ALB,T.PRO,BILI CDT adult proc edure are in the T,BU/BC,ALT,AST,ALK results section. PHOS) TROPONIN I STAT 05/09/2020 2:50 PM Chest pain in Results for this CDT adult procedure are i n the results section . EKG-12 LEAD STAT 05/09/2020 2:49 PM CDT documented in this encounter Results CT Head W/O Contrast (05/09/2020 3:21 PM CDT) Specimen Impressions Performed At PACS/VR/DOSE No acute intracranial abnormality. Preliminary Report Dictated by Resident: Omar Naidu I, Charlee Huang MD., have reviewed this stud y and agree with the above report. Narrative Performed At CT HEAD WITHOUT CONTRAST PACS/VR/DOSE HISTORY: Altered mental status (AMS), un clear cause COMPARISON: None. TECHNIQUE: Axial CT of the head was perf ormed and reconstructed at 5 mm intervals. Coronal and sagittal reformat delmy images were generated. FINDINGS: No intracranial abnormality such as hemorrhage, edema, mass-effect, midline shift, or extra axial fluid collection i s appreciated. The ventricles, sulci, and basal cistern s are within normal limits. No hydrocephalus is seen. The ardon-white matter differentiation is preserved. The ASPECTS score is estimated to be 10. 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 Otherwise, the calvarium and skull base are intact. The paranasal sin uses and mastoid air cells are clear. Procedure Note [facility], Radiant Results Inft User - 2019 3:[address] HEAD WITHOUT CONTRAST HISTORY: Altered mental status (AMS), un clear cause COMPARISON: None. TECHNIQUE: Axial CT of the head was perf ormed and reconstructed at 5 mm intervals. Coronal and sagittal reformat delmy images were generated. FINDINGS: No intracranial abnormality such as hemo rrhage, edema, mass-effect, midline shift, or extra axial fluid collection i s appreciated. The ventricles, sulci, and basal cistern s are within normal limits. No hydrocephalus is seen. The ardon-white matter differentiation is preserved. The ASPECTS score is estimated to be 10. 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 Otherwise, the calvarium and skull base are intact. The paranasal sin uses and mastoid air cells are clear. IMPRESSION No acute intracranial abnormality. Preliminary Report Dictated by Resident: Charlee Lozada MD., have revie wed this study and agree with the above report. Performing Organization Address City/State/Zipcode Phone Number PACS/VR/DOSE THYROID STIMULATING HORMONE (05/09/2020 3:03 PM CDT) Pathologist Sig nature TSH 4.69Comment: Biotin 0.45 - 4.70 [facility] has been reported mIU/L SERVICES to cause a negative bias, interpret results relative to patient's use of biotin. Specimen Blood - VENOUS Performing Organization Address City/[facility]/Zipcode Phone Number [facility] CLIA: [id number], [address] [place] [address] [facility] EXTRA TUBE LT. BLUE (05/09/2020 2:50 PM CDT) Specimen Blood Performing Organization Address City/[facility]/Zipcode Phone Number [facility] CLIA: [id number], [address] [place] [address] [facility] EXTRA TUBE ORANGE (05/09/2020 2:50 PM CDT) Specimen Blood Performing Organization Address [facility]/Zipcode Phone Number [facility] CLIA: [id number], [address] [place] [address] [facility] N-TERMINAL PRO-BNP (05/09/2020 2:50 PM CDT) Pathologist Sig nature NT-proBNP 8,910 (H) <=125 pg/mL [facility] Specimen Blood - VENOUS Narrative Performed At Biotin has been reported to cause a negative bias, int erpret [facility] results relative to patient's use of biotin. Performing Organization Address [facility]/Zipcode Phone Number [facility] CLIA: [id number], [address] [place] [address] [facility] Troponin I (05/09/2020 2:50 PM CDT) Pathologist Sig nature TROPONIN I 0.082 (H) <=0.034 ng/mL [facility] Specimen Blood - VENOUS Narrative Performed At Equal or Less than 0.034 ng/ml---Normal [facility] Note: Cardiac troponin begins to rise 3-4 hours after the onset of ischemia. Repeat in 4-6 hours if the sample w as drawn within 3-4 hours of the onset of the symptom and found normal. Between 0.035 and 0.120 ng/mL--- Borderline. Questiona ble myocardial injury or necrosis Note: Serial measurement may be necessary to confirm o r exclude the diagnosis of myocardial injury or necrosis ; Clinical correlation (symptoms, EKGs, imaging studies, and others) required; Repeat in 4-6 hours if clinically indicated. Equal or Higher than 0.121 ng/mL---Abnormal. Myocardia l Injury or Necrosis Likely Biotin has been reported to cause a negative bias, int erpret results relative to patient's use of biotin. Performing Organization Address [facility] Phone Number [facility] CLIA: [id number], [address] [place] [address] [facility] Hepatic Function Panel (ALB, T.PRO, BILI T, BU/BC, ALT, AST, ALK PHOS) (05/09/2020 2:50 PM CDT) Pathologist Sig nature TOTAL BILI 0.9 0.1 - 1.1 mg/dL [facility] BILI UNCON 0.9 0.1 - 1.1 mg/dL [facility] BILI CONJ 0.0 0.0 - 0.3 mg/dL [facility] T PROTEIN 7.7 6.3 - 8.2 g/dL [facility] ALBUMIN 3.0 (L) 3.5 - 5.0 g/dL [facility] ALK PHOS 82 34 - 122 U/L [facility] ALTv 23 5 - 50 U/L [facility] AST(SGOT) 78 (H) 13 - 40 U/L [facility] Specimen Blood - VENOUS Performing Organization Address City/State/Zipcode Phone Number [facility] CLIA: [id number], [address] [place], [place] [address] [facility] Basic Metabolic Panel (NA, K, CL, CO2, GLUCOSE, BUN, CREATININE, CA) (05/09/2020 2:50 PM CDT) NA 137 135 - 145 [facility] mmol/L SERVICES K 4.0 3.5 - 5.0 [facility] mmol/L SERVICES CL 105 98 - 108 mmol/L [facility] CO2 TOTAL 25 23 - 31 mmol/L [facility] AGAP 7 2 - 16 [facility] BUN 30 (H) 7 - 23 mg/dL [facility] GLUCOSE 97 70 - 110 mg/dL [facility] CREATININE 1.54 (H) 0.60 - 1.25 [facility] mg/dL SERVICES CALCIUM 9.2 8.6 - 10.6 [facility] mg/dL SERVICES eGFR Calculation 47.9 mL/min/1.73m2 [facility] (Non- SERVICES Spanish) eGFR Calculation 58.0 mL/min/1.73m2 [facility] () SERVICES Specimen Blood - VENOUS Narrative Performed At Association of Glomerular Filtration Rate (GFR) and St aging [facility] SERVICES of Kidney Disease* + + +------- ------ + | GFR (mL/min/1.73 m2) | With Kidney Damage | Wi thout Kidney Damage + + +------- ------ + | >90 | Stage one | Normal + + +------- ------ + | 60-89 | Stage two | Decreased GFR + + +------- ------ + | 30-59 | Stage three | Stage three + + +------- ------ + | 15-29 | Stage four | Stage four + + +------- ------ + | <15 (or dialysis) | Stage five | Stage five + + +------- ------ + *Each stage assumes the associated GFR level has been in effect for at least three months. Stages 1 to 5, wit h or without kidney disease, indicate chronic kidney disease. Notes: Determination of stages one and two (with eGFR >59mL/min/1.73 m2) requires estimation of kidney damag e for at least three months as defined by structural or func tional abnormalities of the kidney, manifested by either: Pathological abnormalities or Markers of kidney damage (including abnormalities in the composition of the blo od or urine or abnormalities in imaging tests) . Performing Organization Address City/State/Zipcode Phone Number [facility] CLIA: [id number], [address] [place], [place] [address] [facility] CBC with Differential (05/09/2020 2:50 PM CDT) Pathologist Sig nature WBC 12.17 (H) 4.20 - 10.70 [facility] 10*3/L SERVICES RBC 5.09 4.26 - 5.52 [facility] 10*6/L SERVICES HGB 15.4 12.2 - 16.4 [facility] g/dL SERVICES HCT 45.5 38.4 - 49.3 % [facility] MCV 89.4 81.7 - 95.6 fL [facility] MCH 30.3 26.1 - 32.7 pg [facility] MCHC 33.8 31.2 - 35.0 [facility] g/dL SERVICES RDW-SD 44.7 38.5 - 51.6 fL [facility] RDW-CV 13.6 12.1 - 15.4 % [facility] PLT 206 150 - 328 [facility] 10*3/L SERVICES MPV 10.0 9.8 - 13.0 fL [facility] NRBC/100 WBC 0.0 0.0 - 10.0 /100 [facility] WBCs SERVICES NRBC x10^3 <0.01 10*3/L [facility] GRAN MAT (NEUT) % 71.6 % [facility] IMM GRAN % 0.40 % [facility] LYMPH % 17.7 % [facility] MONO % 9.7 % [facility] EOS % 0.4 % [facility] BASO % 0.2 % [facility] GRAN MAT x10^3(ANC) 8.70 (H) 1.99 - 6.95 [facility] 10*3/uL SERVICES IMM GRAN x10^3 0.05 0.00 - 0.06 [facility] 10*3/uL SERVICES LYMPH x10^3 2.16 1.09 - 3.23 [facility] 10*3/uL SERVICES MONO x10^3 1.18 (H) 0.36 - 1.02 [facility] 10*3/uL SERVICES EOS x10^3 0.05 (L) 0.06 - 0.53 [facility] 10*3/uL SERVICES BASO x10^3 0.03 0.01 - 0.09 [facility] 10*3/uL SERVICES Specimen Blood - VENOUS Performing Organization Address City/State/Zipcode Phone Number [facility] CLIA: [id number], [address] [place] [address] documented in this encounter Visit Diagnoses Diagnosis Hypertensive emergency - Primary Unspecified essential hypertension Chest pain in adult documented in this encounter Administered Medications Medication Order MAR Action Action Date Dose Rate Site aspirin chewable tablet 324 mg Given 05/09/2020 4:30 PM CDT 324 mg 324 mg, Oral, ONCE, 1 dose, Amanda 05/09/20 at 1715, UNIQUE furosemide (LASIX) injection 40 mg Given 05/09/2020 4:32 PM CDT 40 mg 40 mg, IV Push, ONCE, 1 dose, Amanda 05/09/20 at 1715, UNIQUE labetalol (NORMODYNE) injection 20 mg Given 05/09/2020 3:03 PM CDT 20 mg 20 mg, Slow IV Push, ONCE, 1 dose, Amanda 05/09/20 at 1600, UNIQUE NaCl 0.9% (NS) bolus infusion 500 New Bag 05/09/2020 4:32 PM CDT 500 mL 999 mL/hr mL at 999 mL/hr, 500 mL, IV Piggyback, ONCE, 1 dose, Amanda 05/09/20 at 1730, STAT nitroglycerin (NITROL) 2 % ointment 0.5 Given 05/09/20 4:34 PM CDT 0.5 Inches Inch 0.5 Inch, Transdermal (Apply To Skin), ONCE, 1 dose, Amanda 05/09/20 at 1715, UNIQUE tamsulosin (FLOMAX) capsule 0.4 mg Given 05/09/2020 4:30 PM CDT 0.4 mg 0.4 mg, Oral, ONCE, 1 dose, Amanda 05/09/20 at 1730, UNIQUE documented in this encounter"
--- NOTE | 2020-05-12 03:44 | EDPHYS ---
Physician Documentation [facility] Name: Jamar Ford Age: 49 yrs Sex: Male : 1970 Arrival Date: 05/12/2020 Time: 02:15 Bed 8 Private MD: ED Physician Mayito Davenport HPI: 05/12 03:03 This 49 yrs old Male presents to ER via Ambulatory with complaints of Sore tw4 Throat, Headache, Shortness Of Breath. 03:03 The patient presents with sore throat. The patient describes throat pain as raw, tw4 scratchy. Onset: The symptoms/episode began/occurred 3 day(s) ago. Severity of symptoms: At their worst the symptoms were mild, in the emergency department the symptoms are unchanged. Modifying factors: The symptoms are alleviated by nothing, the symptoms are aggravated by nothing. The patient has not experienced similar symptoms in the past. Historical: - Allergies: 02:36 Ibuprofen; ea 02:36 Naproxen; ea - Home Meds: 02:36 Klonopin Oral [Active]; Metoprolol Tartrate Oral [Active]; ea - PMHx: 02:36 Heart Valve problem; ea - PSHx: 02:36 Hernia repair; ea - Immunization history:: Adult Immunizations up to date. - Social history:: Smoking status: Patient reports the use of cigarette tobacco products, smokes one-half pack cigarettes per day. ROS: 03:03 Constitutional: Negative for fever, chills, and weight loss, Eyes: Negative for injury, tw4 pain, redness, and discharge. 03:03 Cardiovascular: Negative for chest pain, palpitations, and edema, Respiratory: Negative for shortness of breath, cough, wheezing, and pleuritic chest pain, Abdomen/GI: Negative for abdominal pain, nausea, vomiting, diarrhea, and constipation, Back: Negative for injury and pain, MS/Extremity: Negative for injury and deformity, Skin: Negative for injury, rash, and discoloration. 03:03 ENT: Positive for sore throat. Exam: 03:03 Constitutional: This is a well developed, well nourished patient who is awake, alert, tw4 and in no acute distress. Head/Face: Normocephalic, atraumatic. 03:03 Chest/axilla: Normal chest wall appearance and motion. Nontender with no deformity. No lesions are appreciated. Cardiovascular: Regular rate and rhythm with a normal S1 and S2. No gallops, murmurs, or rubs. Normal PMI, no JVD. No pulse deficits. Respiratory: Lungs have equal breath sounds bilaterally, clear to auscultation and percussion. No rales, rhonchi or wheezes noted. No increased work of breathing, no retractions or nasal flaring. Abdomen/GI: Soft, non-tender, with normal bowel sounds. No distension or tympany. No guarding or rebound. No evidence of tenderness throughout. MS/ Extremity: Pulses equal, no cyanosis. Neurovascular intact. Full, normal range of motion. Neuro: Awake and alert, GCS 15, oriented to person, place, time, and situation. Cranial nerves II-XII grossly intact. Motor strength 5/5 in all extremities. Sensory grossly intact. Cerebellar exam normal. Normal gait. 03:03 ENT: Posterior pharynx: Vital Signs: 02:24 BP 136 / 91; Pulse 87; Resp 18; Temp 98.2; Pulse Ox 96% ; Weight 99.79 kg; Height 6 ft. ea 2 in. (187.96 cm); 03:23 BP 117 / 84; Pulse 80; Resp 18; Pulse Ox 97% on R/A; mg2 02:24 Body Mass Index 28.25 (99.79 kg, 187.96 cm) ea MDM: 02:37 Patient medically screened. tw4 03:42 Differential diagnosis: influenza, tonsillitis, upper respiratory infection, uvulitis, tw4 viral syndrome. Data reviewed: vital signs, nurses notes. Data interpreted: Pulse oximetry: Interpretation: normal. Test interpretation: by ED physician or midlevel provider: plain radiologic studies. Counseling: I had a detailed discussion with the patient and/or guardian regarding: the historical points, exam findings, and any diagnostic results supporting the discharge/admit diagnosis. Special discussion: I discussed with the patient/guardian in detail that at this point there is no indication for admission to the hospital. It is understood, however, that if the symptoms persist or worsen the patient needs to return immediately for re-evaluation. 05/12 02:21 Order name: COVID-19 mg2 05/12 02:21 Order name: Flu mg2 05/12 02:21 Order name: Strep mg2 05/12 02:22 Order name: XRAY CXR (1 view) mg2 05/12 03:36 Order name: Throat Culture EDMS 05/12 02:21 Order name: Labs collected and sent; Complete Time: 02:39 mg2 05/12 02:21 Order name: O2 Per Protocol; Complete Time: 02:39 mg2 Administered Medications: No medications were administered Disposition: 05/12/20 03:43 Discharged to Home. Impression: Viral infection, unspecified. - Condition is Stable. - Discharge Instructions: Viral Respiratory Infection. - Prescriptions for Tessalon Perles 100 mg Oral Capsule - take 1 capsule by ORAL route every 8 hours As needed; 15 capsule. - Medication Reconciliation Form, Thank You Letter, Antibiotic Education, Prescription Opioid Use form. - Follow up: Private Physician; When: Upon discharge from the Emergency Department; Reason: Recheck today's complaints, Continuance of care, Re-evaluation by your physician. - Problem is new. - Symptoms have improved. Signatures: Dispatcher [employer] EDShayy Lutz RN RN Mayito Rodrigez MD MD tw4 Gab Smith RN RN mg2 Corrections: (The following items were deleted from the chart) 03:49 03:43 05/12/2020 03:43 Discharged to Home. Impression: Viral infection, unspecified. ea Condition is Stable. Forms are Medication Reconciliation Form, Thank You Letter, Antibiotic Education, Prescription Opioid Use. Follow up: Private Physician; When: Upon discharge from the Emergency Department; Reason: Recheck today's complaints, Continuance of care, Re-evaluation by your physician. Problem is new. Symptoms have improved. tw4
--- NOTE | 2020-05-12 03:44 | ER ---
Nurse's Notes [facility] Name: Jamar Ford Age: 49 yrs Sex: Male : 1970 Arrival Date: 05/12/2020 Time: 02:15 Bed 8 Private MD: Diagnosis: Viral infection, unspecified Presentation: 05/12 02:24 Chief complaint: Patient states: Reports he started having sore throat, shortness of ea breath and headaches. Pt reports symptoms started 3 days ago. Coronavirus screen: Patient reports shortness of breath or difficulty breathing. Ebola Screen: No symptoms or risks identified at this time. Initial Sepsis Screen: Does the patient meet any 2 criteria? No. Patient's initial sepsis screen is negative. Does the patient have a suspected source of infection? No. Patient's initial sepsis screen is negative. Risk Assessment: Do you want to hurt yourself or someone else? Patient reports no desire to harm self or others. Onset of symptoms was May 12, 2020. 02:24 Method Of Arrival: Ambulatory ea 02:24 Acuity: FERNANDO 3 ea Triage Assessment: 02:28 General: Appears in no apparent distress. Behavior is calm, cooperative, appropriate ea for age. Pain: Complains of pain in sore throat. EENT: Reports sore throat. Historical: - Allergies: 02:36 Ibuprofen; ea 02:36 Naproxen; ea - Home Meds: 02:36 Klonopin Oral [Active]; Metoprolol Tartrate Oral [Active]; ea - PMHx: 02:36 Heart Valve problem; ea - PSHx: 02:36 Hernia repair; ea - Immunization history:: Adult Immunizations up to date. - Social history:: Smoking status: Patient reports the use of cigarette tobacco products, smokes one-half pack cigarettes per day. Screenin:27 Abuse screen: Denies threats or abuse. Nutritional screening: No deficits noted. ea Tuberculosis screening: No symptoms or risk factors identified. Fall Risk None identified. Assessment: 02:34 General: Appears in no apparent distress. comfortable, Behavior is calm, cooperative. mg2 Pain: Complains of pain in head Pain currently is 4 out of 10 on a pain scale. Quality of pain is described as aching. Neuro: Level of Consciousness is awake, alert, obeys commands, Oriented to person, place, time, situation. Cardiovascular: Capillary refill < 3 seconds Patient's skin is warm and dry. Respiratory: Airway is patent Respiratory effort is even, unlabored, Respiratory pattern is regular, symmetrical, Breath sounds are clear bilaterally. GI: No signs and/or symptoms were reported involving the gastrointestinal system. : No signs and/or symptoms were reported regarding the genitourinary system. EENT: Throat is clear. Derm: Skin is intact, is healthy with good turgor, Skin is pink, warm \T\ dry. normal. Musculoskeletal: Circulation, motion, and sensation intact. Capillary refill < 3 seconds. 03:39 Reassessment: Patient and/or family updated on plan of care and expected duration. Pain ea level reassessed. 03:50 Reassessment: Patient and/or family updated on plan of care and expected duration. Pain ea level reassessed. Discharge instruction given to patient, verbalized the understanding of instruction. Pt left ED ambulatory tolerating well. Vital Signs: 02:24 BP 136 / 91; Pulse 87; Resp 18; Temp 98.2; Pulse Ox 96% ; Weight 99.79 kg; Height 6 ft. ea 2 in. (187.96 cm); 03:23 BP 117 / 84; Pulse 80; Resp 18; Pulse Ox 97% on R/A; mg2 02:24 Body Mass Index 28.25 (99.79 kg, 187.96 cm) ea ED Course: 02:15 Patient arrived in ED. ds1 02:20 Gab Smith, RN is Primary Nurse. mg2 02:27 Triage completed. ea 02:27 Patient has correct armband on for positive identification. Bed in low position. Call ea light in reach. Side rails up X2. 02:28 Arm band placed on right wrist. Patient placed in an exam room, on a stretcher, on ea pulse oximetry. 02:37 Mayito Davenport MD is Attending Physician. tw4 02:37 No provider procedures requiring assistance completed. Patient did not have IV access mg2 during this emergency room visit. 03:06 XRAY CXR (1 view) In Process Unspecified. EDMS Administered Medications: No medications were administered Outcome: 03:43 Discharge ordered by . tw4 03:49 Discharged to home ambulatory. ea 03:49 Condition: stable 03:49 Discharge instructions given to patient, Instructed on discharge instructions, follow up and referral plans. medication usage, Demonstrated understanding of instructions, follow-up care, medications, Prescriptions given X 1. 03:49 Patient left the ED. ea Addendum: 05/15/2020 14:53 Addendum: COVID-19 Result: Negative result given to RN to notify pt. Attempted to d m5 contact pt regarding negative COVID-19 swab results. Left voice mail. 15:06 Addendum: COVID-19 Result: Negative result given to RN to notify pt. Notified pt of d m5 negative COVID 19 swab results. Pt advised that even with a negative test result they should remain in isolation until symptom free for 3 days without medication. Pt also advised to return to the ED for worsening symptoms. Signatures: Dispatcher [employer] Carlee Chong, RN RN Paige Triana ds1 Shayy Moody RN RN ea Wadley, Terrence, MD MD tw4 Gab Smith RN RN mg2 Corrections: (The following items were deleted from the chart) 05/12 03:50 03:39 Reassessment: Patient and/or family updated on plan of care and expected ea duration. Pain level reassessed. Patient is alert/active/playful, equal unlabored respirations, skin warm/dry/pink. ea
[2020-05-12 03:56] VITALS: TEMP 98.2
[2020-05-12 03:57] VITALS: BP 117/84; O2SAT 97
--- NOTE | 2020-05-12 10:34 | RAD REPORT ---
EXAM DESCRIPTION: Rosa Isela Single View05/12/2020 3:06 am CLINICAL HISTORY: sob COMPARISON: January 2020 FINDINGS: The lungs appear clear of acute infiltrate. The heart is normal size. Mild elevation left hemidiaphragm
== END 2020-05-12 03:49 | disposition home or self-care (01) ==
LOC: ER 02:14
DX: B34.9 Viral infection, unspecified (principal); Z20.828 Contact with and (suspected) exposure to other viral communicable diseases; F17.210 Nicotine dependence, cigarettes, uncomplicated; Z88.6 Allergy status to analgesic agent
CPT/HCPCS: 71045; 87070; 87081; 87804; 99283; U0001